=== PATIENT | male | born 1975 | race African-American/Black ===

== ENCOUNTER 2017-08-21 09:47 | Inpatient (IN) | payer BC ==
[2017-08-21 11:11] LABS: BILIRUBIN,URINE NEGATIVE (NEG); CLARITY,URINE CLEAR; COLOR,URINE YELLOW; GLUCOSE,URINE NEGATIVE (NEG); NITRITE,URINE NEGATIVE (NEG); PH,URINE 5.5; PROTEIN,URINE NEGATIVE (NEG-TRACE); UROBILINOGEN,URINE 0.2 mg/dL (0.2 mg/dL)
[2017-08-21 11:16] LABS: SQUAMOUS EPITHELIAL CELL,UR OCC /LPF
[2017-08-21] MEDS: ONDANSETRON PF 4 MG/2 ML VIAL. IV (11:16)
[2017-08-21] MEDS: KETOROLAC 30 MG/ML INJ. IV (11:16)
[2017-08-21 11:17] LABS: LIPASE 161 U/L (73-393)
[2017-08-21 11:17] LABS: ADD MAN DIFF? NO; ANION GAP 8 (6-14); BACTERIA,URINE FEW /HPF (0-FEW); BLOOD UREA NITROGEN 24 mg/dL (8-26); BUN/CREATININE RATIO 20 (6-20); CALCIUM 9.7 mg/dL (8.5-10.1); CARBON DIOXIDE 27 mmol/L (21-32); CHLORIDE 103 mmol/L (98-107); CREATININE 1.2 mg/dL (0.7-1.3); GFR 67.4; GLUCOSE 123 mg/dL (70-99); POTASSIUM 4.4 mmol/L (3.5-5.1); RBC,URINE 0 /HPF (0-2); SODIUM 138 mmol/L (136-145)
[2017-08-21] MEDS: IV NORMAL SALINE 1000ML BAG 1,000 ML IV (11:17)
[2017-08-21 11:18] LABS: AMPHETAMINE/METHAMPHETAMINE NEG (NEG); BARBITURATES NEG (NEG); BENZODIAZEPINES NEG (NEG); CANNABINOIDS POS (NEG); COCAINE POS (NEG); ETHANOL, URINE NEG (NEG); METHADONE NEG (NEG); OPIATES NEG (NEG); PHENCYCLIDINE NEG (NEG)
[2017-08-21 11:20] LABS: BASO % 0 % (0-3); EOS % 0 % (0-3); HEMOGLOBIN 13.1 g/dL (13.0-17.5); LYMPH # 0.8 x10^3/uL (1.0-4.8); LYMPH % 12 % (24-48); MEAN CORPUSCULAR HEMOGLOBIN 31 pg (25-35); MEAN CORPUSCULAR HGB CONC 34 g/dL (31-37); MEAN CORPUSCULAR VOLUME 93 fL (79-100); MONO # 0.3 x10^3/uL (0.0-1.1); MONO % 4 % (0-9); NEUT % 83 % (31-73); PLATELET COUNT 244 x10^3/uL (140-400); RED BLOOD COUNT 4.21 x10^6/uL (4.30-5.70); RED CELL DISTRIBUTION WIDTH 13.9 % (11.5-14.5); WHITE BLOOD COUNT 7.2 x10^3/uL (4.0-11.0)
[2017-08-21 11:26] LABS: ALBUMIN/GLOBULIN RATIO 1.1 (1.0-1.7); ALK PHOS 105 U/L (46-116); ALT (SGPT) 53 U/L (16-63); AST (SGOT) 29 U/L (15-37); TOTAL BILIRUBIN 0.5 mg/dL (0.2-1.0); TOTAL PROTEIN 7.8 g/dL (6.4-8.2)
[2017-08-21] MEDS ORDERED: fentaNYL PF VIAL 100 MCG/2 ML VIAL IV (12:00)
[2017-08-21] MEDS ORDERED: IOHEXOL 300 MG/ML 100ML VIAL. (12:25)
[2017-08-21] MEDS ORDERED: CONTRAST GIVEN MC (12:30)
[2017-08-21 12:34] LABS: TROPONINI < 0.017 ng/mL (0.000-0.055)
[2017-08-21] MEDS: IOHEXOL 300 MG/ML 100ML VIAL. IV (13:25)
[2017-08-21] MEDS: hydrALAZINE 20 MG/ML VIAL. IVP ×2 (14:51→18:12)
[2017-08-21] MEDS ORDERED: ACETAMINOPHEN 500 MG TABLET PO (15:30)
[2017-08-21] MEDS ORDERED: diphenhydrAMINE HCL 25 MG CAPSULE PO (15:30)
[2017-08-21] MEDS ORDERED: ONDANSETRON PF 4 MG/2 ML VIAL. IV ×2 (15:30→17:00)
[2017-08-21] MEDS ORDERED: NICOTINE 21MG PATCH. TD (15:45)
[2017-08-21] MEDS: hydroCHLOROthiazide 12.5 MG CAPSULE PO (16:10)
[2017-08-21] MEDS: LISINOPRIL 5 MG TABLET. PO (16:10)
[2017-08-21] MEDS: amLODIPine BESYLATE 5 MG TABLET PO (17:21)
[2017-08-21 17:49] LABS: CHOLESTEROL 172 mg/dL (0-200); HDLC 58 mg/dL (40-60); LDLC 97 mg/dL (0-100); NON-HDL CHOLESTEROL 114 mg/dL (0-129); TRIGLYCERIDES 84 mg/dL (0-150); VLDLC 17 mg/dL (0-40)
[2017-08-21 17:57] LABS: THYROID STIM HORMONE (TSH) 0.363 uIU/mL (0.358-3.74)
[2017-08-21] MEDS: IBUPROFEN 600 MG TABLET. PO (19:58)
[2017-08-21 20:30] LABS: TROPONINI < 0.017 ng/mL (0.000-0.055)
[2017-08-21 23:34] LABS: TROPONINI < 0.017 ng/mL (0.000-0.055)
[2017-08-22] MEDS: IBUPROFEN 600 MG TABLET. PO ×2 (04:59→12:49)
[2017-08-22 05:16] LABS: ADD MAN DIFF? NO
[2017-08-22 05:38] LABS: ANION GAP 10 (6-14); BASO % 1 % (0-3); BLOOD UREA NITROGEN 12 mg/dL (8-26); CALCIUM 9.2 mg/dL (8.5-10.1); CARBON DIOXIDE 25 mmol/L (21-32); CHLORIDE 102 mmol/L (98-107); CREATININE 0.9 mg/dL (0.7-1.3); EOS # 0.1 x10^3/uL (0.0-0.7); EOS % 2 % (0-3); GFR 113.7; GLUCOSE 104 mg/dL (70-99); HEMATOCRIT 44.5 % (39.0-53.0); HEMOGLOBIN 15.2 g/dL (13.0-17.5); LYMPH # 1.9 x10^3/uL (1.0-4.8); LYMPH % 30 % (24-48); MEAN CORPUSCULAR HEMOGLOBIN 31 pg (25-35); MEAN CORPUSCULAR HGB CONC 34 g/dL (31-37); MEAN CORPUSCULAR VOLUME 92 fL (79-100); MONO # 0.6 x10^3/uL (0.0-1.1); MONO % 9 % (0-9); NEUT # 3.7 x10^3uL (1.8-7.7); NEUT % 58 % (31-73); PLATELET COUNT 295 x10^3/uL (140-400); POTASSIUM 3.8 mmol/L (3.5-5.1); RED BLOOD COUNT 4.85 x10^6/uL (4.30-5.70); RED CELL DISTRIBUTION WIDTH 13.8 % (11.5-14.5); SODIUM 137 mmol/L (136-145); WHITE BLOOD COUNT 6.4 x10^3/uL (4.0-11.0)
[2017-08-22] MEDS: LISINOPRIL 5 MG TABLET. PO (08:30)
[2017-08-22] MEDS: ACETAMINOPHEN 325 MG TABLET. PO (08:30)
[2017-08-22] MEDS: hydroCHLOROthiazide 25 MG TABLET PO (08:30)
== END 2017-08-22 13:45 | disposition home or self-care (01) | DRG 305 ==
LOC: ER 09:47 → 2 SOUTH 14:41
DX: I16.0 Hypertensive urgency (principal); F14.90 Cocaine use, unspecified, uncomplicated; F17.210 Nicotine dependence, cigarettes, uncomplicated; I10 Essential (primary) hypertension; R51 Headache; Z82.49 Family history of ischemic heart disease and other diseases of the circulatory system
CPT/HCPCS: 36415; 74022; 74177; 80048; 80053; 80061; 80307; 81001; 83690; 84443; 84484; 85025; 93005; 93306; 96374; 96375; 99285; 99285-25; J0360; J1885; J2405; J7030; Q9967

== ENCOUNTER 2017-08-23 12:49 | Inpatient (IN) | payer BC ==
[2017-08-23] MEDS ORDERED: MORPHINE SULFATE 4 MG/ML DISP.SYRIN. IV/SQ (13:15)
[2017-08-23] MEDS ORDERED: NITROGLYCERIN SUBLINGUAL 0.4 MG BOTTLE OF 25. SL (13:15)
[2017-08-23] MEDS ORDERED: 0.9 % SODIUM CHLORIDE 10 ML DISP.SYRIN. IV (13:15)
[2017-08-23 13:17] LABS: ADD MAN DIFF? NO
[2017-08-23 13:20] LABS: BASO # 0.1 x10^3/uL (0.0-0.2); BASO % 1 % (0-3); EOS # 0.2 x10^3/uL (0.0-0.7); EOS % 2 % (0-3); HEMATOCRIT 46.8 % (39.0-53.0); HEMOGLOBIN 16.2 g/dL (13.0-17.5); LYMPH # 1.6 x10^3/uL (1.0-4.8); LYMPH % 18 % (24-48); MEAN CORPUSCULAR HEMOGLOBIN 32 pg (25-35); MEAN CORPUSCULAR HGB CONC 35 g/dL (31-37); MEAN CORPUSCULAR VOLUME 92 fL (79-100); MONO # 0.8 x10^3/uL (0.0-1.1); MONO % 9 % (0-9); NEUT # 6.1 x10^3uL (1.8-7.7); NEUT % 70 % (31-73); PLATELET COUNT 294 x10^3/uL (140-400); RED CELL DISTRIBUTION WIDTH 13.8 % (11.5-14.5); WHITE BLOOD COUNT 8.7 x10^3/uL (4.0-11.0)
[2017-08-23 13:38] LABS: ANION GAP 14 (6-14); BLOOD UREA NITROGEN 35 mg/dL (8-26); CALCIUM 10.1 mg/dL (8.5-10.1); CARBON DIOXIDE 23 mmol/L (21-32); CHLORIDE 104 mmol/L (98-107); CREATININE 2.8 mg/dL (0.7-1.3); GFR 30.7; GLUCOSE 119 mg/dL (70-99); POTASSIUM 4.3 mmol/L (3.5-5.1); SODIUM 141 mmol/L (136-145)
[2017-08-23 13:45] LABS: INR 1.1 (0.8-1.1); PROTHROMBIN TIME PATIENT 13.3 SEC (11.7-14.0)
[2017-08-23] MEDS ORDERED: ASPIRIN 325 MG TABLET PO (13:45)
[2017-08-23 13:47] LABS: TROPONINI < 0.017 ng/mL (0.000-0.055)
[2017-08-23] MEDS: IV NORMAL SALINE 1000ML BAG 1,000 ML IV ×2 (13:49→20:45)
[2017-08-23 13:50] LABS: ALBUMIN 4.2 g/dL (3.4-5.0); ALK PHOS 105 U/L (46-116); ALT (SGPT) 54 U/L (16-63); AST (SGOT) 26 U/L (15-37); DIRECT BILIRUBIN 0.1 mg/dL (0.0-0.2); LIPASE 298 U/L (73-393); MAGNESIUM 1.9 mg/dL (1.8-2.4); TOTAL BILIRUBIN 0.5 mg/dL (0.2-1.0); TOTAL PROTEIN 8.1 g/dL (6.4-8.2)
[2017-08-23 13:50] LABS: THYROID STIM HORMONE (TSH) 1.716 uIU/mL (0.358-3.74)
[2017-08-23 13:51] LABS: CKMB MASS 1.9 ng/mL (0.0-3.6); CREATINE KINASE 193 U/L (39-308); D-DIMER 0.38 ug/mlFEU (0.00-0.50)
[2017-08-23 13:51] LABS: NT-PRO BNP 36 pg/mL (0-124)
[2017-08-24] MEDS: IV NORMAL SALINE 1000ML BAG 1,000 ML IV ×3 (05:28→21:43)
[2017-08-24] MEDS: amLODIPine BESYLATE 10 MG TABLET PO (11:03)
[2017-08-24] MEDS ORDERED: HYDROcodone/APAP 5/325MG 1 TAB TABLET PO (12:00)
[2017-08-24 12:44] LABS: ALBUMIN 3.7 g/dL (3.4-5.0); ANION GAP 9 (6-14); BLOOD UREA NITROGEN 27 mg/dL (8-26); CALCIUM 8.8 mg/dL (8.5-10.1); CARBON DIOXIDE 25 mmol/L (21-32); CHLORIDE 105 mmol/L (98-107); CREATININE 1.2 mg/dL (0.7-1.3); GFR 81.6; GLUCOSE 111 mg/dL (70-99); PHOSPHORUS 3.2 mg/dL (2.6-4.7); POTASSIUM 4.5 mmol/L (3.5-5.1); SODIUM 139 mmol/L (136-145)
[2017-08-24 14:05] LABS: BILIRUBIN,URINE NEGATIVE (NEG); GLUCOSE,URINE NEGATIVE (NEG); NITRITE,URINE NEGATIVE (NEG); PROTEIN,URINE NEGATIVE (NEG-TRACE); UROBILINOGEN,URINE 0.2 mg/dL (0.2 mg/dL)
[2017-08-24 14:13] LABS: CLARITY,URINE CLEAR; COLOR,URINE STRAW
[2017-08-24 14:15] LABS: BACTERIA,URINE 0 /HPF (0-FEW); RBC,URINE 0 /HPF (0-2); SQUAMOUS EPITHELIAL CELL,UR FEW /LPF; WBC,URINE 0 /HPF (0-4)
[2017-08-24] MEDS: ASPIRIN ENTERIC COATED 325 MG TABLET.DR. PO (15:51)
[2017-08-25] MEDS: IV NORMAL SALINE 1000ML BAG 1,000 ML IV ×2 (02:11→12:55)
[2017-08-25] MEDS: ASPIRIN ENTERIC COATED 81 MG TABLET.DR. PO (10:26)
[2017-08-25] MEDS: amLODIPine BESYLATE 10 MG TABLET PO (10:26)
[2017-08-26] MEDS: IV NORMAL SALINE 1000ML BAG 1,000 ML IV ×2 (00:13→08:29)
[2017-08-26 05:42] LABS: ANION GAP 7 (6-14); BLOOD UREA NITROGEN 17 mg/dL (8-26); CALCIUM 8.8 mg/dL (8.5-10.1); CARBON DIOXIDE 29 mmol/L (21-32); CHLORIDE 106 mmol/L (98-107); GFR 100.7; GLUCOSE 89 mg/dL (70-99); POTASSIUM 4.2 mmol/L (3.5-5.1); SODIUM 142 mmol/L (136-145)
[2017-08-26] MEDS: ASPIRIN ENTERIC COATED 81 MG TABLET.DR. PO (08:23)
[2017-08-26] MEDS: amLODIPine BESYLATE 10 MG TABLET PO (08:23)
[2017-08-26] MEDS: cloNIDine HCL 0.1 MG TABLET PO (11:02)
[2017-08-26] MEDS: LISINOPRIL 20 MG TABLET PO (12:00)
== END 2017-08-26 12:52 | disposition home or self-care (01) | DRG 640 ==
LOC: ER 12:49 → 5 NORTH 15:14
DX: E86.0 Dehydration (principal); N17.0 Acute kidney failure with tubular necrosis; I10 Essential (primary) hypertension; R07.89 Other chest pain; F17.210 Nicotine dependence, cigarettes, uncomplicated; F14.10 Cocaine abuse, uncomplicated; F19.10 Other psychoactive substance abuse, uncomplicated; Z82.49 Family history of ischemic heart disease and other diseases of the circulatory system
CPT/HCPCS: 36415; 71045; 76770; 78452; 80048; 80069; 80076; 81001; 82553; 83690; 83735; 83880; 84443; 84484; 85025; 85379; 85610; 93005; 93017; 96360; 96361; 96374; 96376; 99285; 99285-25; A9500; J7030

== ENCOUNTER 2018-01-19 23:44 | Emergency (ER) | payer BC ==
[~2018-01-19] VITALS: Ht 188 cm; Wt 104.3 kg
[~2018-01-19 23:44] MED LIST: AMLO10TA6 PO; LISI1TAB3 PO
[2018-01-20] LABS: BASO # 0.1 x10^3/uL (0.0-0.2); BASO % 1 % (0-3); EOS # 0.2 x10^3/uL (0.0-0.7); EOS % 4 % (0-3); HEMATOCRIT 42.3 % (39.0-53.0); HEMOGLOBIN 14.9 g/dL (13.0-17.5); LYMPH # 2.2 x10^3/uL (1.0-4.8); LYMPH % 36 % (24-48); MEAN CORPUSCULAR HEMOGLOBIN 32 pg (25-35); MEAN CORPUSCULAR HGB CONC 35 g/dL (31-37); MEAN CORPUSCULAR VOLUME 90 fL (79-100); MONO # 0.6 x10^3/uL (0.0-1.1); MONO % 10 % (0-9); NEUT # 2.9 x10^3uL (1.8-7.7); NEUT % 49 % (31-73); PLATELET COUNT 348 x10^3/uL (140-400); RED CELL DISTRIBUTION WIDTH 13.6 % (11.5-14.5)
[2018-01-20 00:08] LABS: CALCIUM 10.3 mg/dL (8.5-10.1); CREATININE 1.9 mg/dL (0.7-1.3); GFR 47.7; POTASSIUM 4.1 mmol/L (3.5-5.1)
[2018-01-20 00:14] LABS: ALBUMIN 4.7 g/dL (3.4-5.0); ALBUMIN/GLOBULIN RATIO 1.3 (1.0-1.7); TOTAL BILIRUBIN 0.6 mg/dL (0.2-1.0); TOTAL PROTEIN 8.2 g/dL (6.4-8.2)
[2018-01-20] MEDS ORDERED: IV NORMAL SALINE 1000ML BAG 1,000 ML IV ONE ×2 (00:30)
--- NOTE | 2018-01-20 00:51 | PHYS DOC ---
Past Medical History Past Medical History: Hypertension Past Surgical History: Tonsillectomy Alcohol Use: Occasionally Drug Use: Cocaine, Marijuana Adult General Chief Complaint Chief Complaint: Palpitations HPI HPI Patient is a 42 year old female presents with palpitations brought in by ambulance he did cocaine prior to the onset. Just feels like her heart is racing no chest pain otherwise symptoms are moderate worsening with time. Review of Systems Review of Systems Constitutional: Denies fever or chills [] Eyes: Denies change in visual acuity, redness, or eye pain [] HENT: Denies nasal congestion or sore throat [] : Denies dysuria or hematuria [] Musculoskeletal: Denies back pain or joint pain [] Integument: Denies rash or skin lesions [] Neurologic: Denies headache, focal weakness or sensory changes [] Endocrine: Denies polyuria or polydipsia [] Denies suicidal ideation All other systems were reviewed and found to be within normal limits, except as documented in this note. Current Medications Current Medications Current Medications Medications (Trade) Dose Ordered Sig/Tabitha Start Time Stop Time Status Last Admin Dose Admin Lorazepam (Ativan) 2 mg 1X ONCE 01/20/18 00:15 01/20/18 00:16 DC 01/20/18 00:02 2 MG Sodium Chloride 1,000 ml @ 1,000 mls/hr 1X ONCE 01/20/18 00:30 01/20/18 01:29 01/20/18 00:19 1,000 MLS/HR Allergies Allergies Allergies Coded Allergies Type Severity Reaction Last Updated Verified lisinopril Allergy Intermediate 01/20/18 Yes Physical Exam Physical Exam Constitutional: Well developed, anxious HENT: Normocephalic, atraumatic, bilateral external ears normal, oropharynx moist, no oral exudates, nose normal. [] Eyes: PERRLA, EOMI, conjunctiva normal, no discharge. [] Neck: Normal range of motion, no tenderness, supple, no stridor. [] Cardiovascular:Heart rate tachycardic , regular rhythm, no murmur [] Lungs & Thorax: Bilateral breath sounds clear to auscultation [] Abdomen: Bowel sounds normal, soft, no tenderness, no masses, no pulsatile masses. [] Skin: Warm, dry, no erythema, no rash. [] Back: No tenderness, no CVA tenderness. [] Extremities: No tenderness, no cyanosis, no clubbing, ROM intact, no edema. [] Neurologic: Alert and oriented X 3, normal motor function, normal sensory function, no focal deficits noted. [] Psychologic: Affect normal, judgement normal, mood anxious Current Patient Data Vital Signs Vital Signs Date Time Temp Pulse Resp B/P (MAP) Pulse Ox O2 Delivery O2 Flow Rate FiO2 01/19/18 23:45 98.2 120 22 159/97 (117) 99 Room Air 98.2 Lab Values Laboratory Tests Test 01/19/18 23:47 White Blood Count 6.0 x10^3/uL (4.0-11.0) Red Blood Count 4.70 x10^6/uL (4.30-5.70) Hemoglobin 14.9 g/dL (13.0-17.5) Hematocrit 42.3 % (39.0-53.0) Mean Corpuscular Volume 90 fL (79-100) Mean Corpuscular Hemoglobin 32 pg (25-35) Mean Corpuscular Hemoglobin Concent 35 g/dL (31-37) Red Cell Distribution Width 13.6 % (11.5-14.5) Platelet Count 348 x10^3/uL (140-400) Neutrophils (%) (Auto) 49 % (31-73) Lymphocytes (%) (Auto) 36 % (24-48) Monocytes (%) (Auto) 10 % (0-9) H Eosinophils (%) (Auto) 4 % (0-3) H Basophils (%) (Auto) 1 % (0-3) Neutrophils # (Auto) 2.9 x10^3uL (1.8-7.7) Lymphocytes # (Auto) 2.2 x10^3/uL (1.0-4.8) Monocytes # (Auto) 0.6 x10^3/uL (0.0-1.1) Eosinophils # (Auto) 0.2 x10^3/uL (0.0-0.7) Basophils # (Auto) 0.1 x10^3/uL (0.0-0.2) Sodium Level 135 mmol/L (136-145) L Potassium Level 4.1 mmol/L (3.5-5.1) Chloride Level 98 mmol/L (98-107) Carbon Dioxide Level 22 mmol/L (21-32) Anion Gap 15 (6-14) H Blood Urea Nitrogen 20 mg/dL (8-26) Creatinine 1.9 mg/dL (0.7-1.3) H Estimated GFR (Cockcroft-Gault) 47.7 BUN/Creatinine Ratio 11 (6-20) Glucose Level 114 mg/dL (70-99) H Calcium Level 10.3 mg/dL (8.5-10.1) H Total Bilirubin 0.6 mg/dL (0.2-1.0) Aspartate Amino Transferase (AST) 30 U/L (15-37) Alanine Aminotransferase (ALT) 45 U/L (16-63) Alkaline Phosphatase 121 U/L (46-116) H Troponin I Quantitative < 0.017 ng/mL (0.000-0.055) Total Protein 8.2 g/dL (6.4-8.2) Albumin 4.7 g/dL (3.4-5.0) Albumin/Globulin Ratio 1.3 (1.0-1.7) Laboratory Tests 01/19/18 23:47 Laboratory Tests 01/19/18 23:47 EKG EKG []EKG shows a sinus tachycardia rate of 123 there are likely rate related ST changes inferiorly. Radiology/Procedures Radiology/Procedures [] Course & Med Decision Making Course & Med Decision Making Pertinent Labs and Imaging studies reviewed. (See chart for details) []42-year-old male presenting with palpitations in the setting of cocaine use. Patient is given Ativan in the emergency room as well as IV fluids with significant improvement. There were some probably rate related changes on EKG but troponin negative. Counseled on drug use cessation he was given resources for detox. Knows the bump and the creatinine as well as given 2 L of IV fluids for this Dragon Disclaimer Dragon Disclaimer This electronic medical record was generated, in whole or in part, using a voice recognition dictation system. Departure Departure Impression: Primary Impression: Drug abuse Disposition: 01 HOME, SELF-CARE Condition: STABLE Patient Instructions: Drug Abuse, FAOLIVER Choi MD Jan 20, 2018 00:51
[2018-01-20 01:39] VITALS: BP 142/93
--- NOTE | 2018-01-20 07:52 | EKG ---
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
== END 2018-01-20 01:55 | disposition home or self-care (01) ==
LOC: ER 23:44
DX: F19.10 Other psychoactive substance abuse, uncomplicated (principal); F14.10 Cocaine abuse, uncomplicated; R00.0 Tachycardia, unspecified; I10 Essential (primary) hypertension; Z90.89 Acquired absence of other organs; Z88.8 Allergy status to other drugs, medicaments and biological substances
CPT/HCPCS: 36415; 80053; 84484; 85025; 93005; 96374; 99285; J2060; J7030; 96361

== ENCOUNTER 2018-03-23 21:03 | Inpatient (IN) | payer BC ==
[~2018-03-23] VITALS: Ht 182.9 cm; Wt 102.1 kg
[2018-03-23] MEDS ORDERED: AMIODARONE 900 MG in IV DEXTROSE 5% 500 ML IV PRN (21:15)
[2018-03-23] MEDS ORDERED: ASPIRIN CHEWABLE 81 MG TABLET. PO ONE (21:30)
[2018-03-23] MEDS ORDERED: fentaNYL PF VIAL 100 MCG/2 ML VIAL IV ONE (21:30)
[2018-03-23] MEDS ORDERED: HEPARIN for IV BOLUS 10,000 UNIT/10 ML VIAL. ONE (21:40)
[2018-03-23] MEDS ORDERED: NITROGLYCERIN SUBLINGUAL 0.4 MG BOTTLE OF 25. SL ONE (21:45)
[2018-03-23] MEDS ORDERED: HEPARIN for IV BOLUS 10,000 UNIT/10 ML VIAL. IV ONE (21:45)
[2018-03-23 21:46] LABS: BASO % 0 % (0-3); EOS # 0.1 x10^3/uL (0.0-0.7); EOS % 1 % (0-3); HEMATOCRIT 40.8 % (39.0-53.0); HEMOGLOBIN 14.4 g/dL (13.0-17.5); LYMPH # 1.1 x10^3/uL (1.0-4.8); LYMPH % 10 % (24-48); MEAN CORPUSCULAR HEMOGLOBIN 32 pg (25-35); MEAN CORPUSCULAR HGB CONC 35 g/dL (31-37); MEAN CORPUSCULAR VOLUME 91 fL (79-100); MONO # 0.5 x10^3/uL (0.0-1.1); MONO % 5 % (0-9); NEUT # 9.2 x10^3uL (1.8-7.7); NEUT % 84 % (31-73); PLATELET COUNT 327 x10^3/uL (140-400); RED BLOOD COUNT 4.51 x10^6/uL (4.30-5.70); RED CELL DISTRIBUTION WIDTH 13.6 % (11.5-14.5); WHITE BLOOD COUNT 10.9 x10^3/uL (4.0-11.0)
[2018-03-23 21:56] LABS: CALCIUM 9.6 mg/dL (8.5-10.1); CREATININE 1.3 mg/dL (0.7-1.3); POTASSIUM 4.3 mmol/L (3.5-5.1)
[2018-03-23] MEDS ORDERED: HEPARIN for IV BOLUS 10,000 UNIT/10 ML VIAL. IV PRN (22:00)
[2018-03-23] MEDS ORDERED: HEPARIN 25,000UTS/500ML PREMIX 500 ML IV PRN (22:00)
[2018-03-23] MEDS ORDERED: NITROGLYCERIN PREMIX 250 ML IV ONE (22:00)
[2018-03-23 22:01] LABS: ALBUMIN 4.4 g/dL (3.4-5.0); ALBUMIN/GLOBULIN RATIO 1.2 (1.0-1.7); TOTAL BILIRUBIN 0.2 mg/dL (0.2-1.0); TOTAL PROTEIN 8.1 g/dL (6.4-8.2)
[2018-03-23 22:03] LABS: PROTHROMBIN TIME PATIENT 11.7 SEC (11.7-14.0)
[2018-03-23] MEDS ORDERED: MORPHINE SULFATE 10 MG/ML VIAL. ONE (22:13)
[2018-03-23] MEDS ORDERED: MORPHINE SULFATE 4 MG/ML VIAL. IV ONE (22:15)
[2018-03-23 23:00] VITALS: BP 115/64
[2018-03-23 23:15] VITALS: BP 120/66
[2018-03-23 23:30] VITALS: BP 112/66
--- NOTE | 2018-03-23 23:35 | PHYS DOC ---
Past Medical History Past Medical History: Hypertension Past Surgical History: Tonsillectomy Alcohol Use: Occasionally Drug Use: Cocaine, Marijuana Adult General Chief Complaint Chief Complaint: CHEST PAIN-CARDIAC NATURE HPI HPI Patient is a 42 year old presenting with cc of chest pain. Patient's about 3 hours ago he began having dull left upper quadrant abdominal pain and then over the last hour or so he says he is now having a lot of chest pain and feels like pressure across the center of his chest more left sided feels some mild shortness of breath he says he feels sleepy and tired. Of note history obtained later was at the patient did use cocaine yesterday No fever noted. Symptoms are moderate to severe they're worsening with time no relief with medications given in the emergency room such as fentanyl. He was still having pain. Review of Systems Review of Systems Constitutional: Denies fever or chills [] Eyes: Denies change in visual acuity, redness, or eye pain [] HENT: Denies nasal congestion or sore throat [] Respiratory: Denies cough Cardiovascular: No additional information not addressed in HPI [] GI: Nausea noted Integument: Denies rash or skin lesions [] All other systems were reviewed and found to be within normal limits, except as documented in this note. Current Medications Current Medications Current Medications Medications (Trade) Dose Ordered Sig/Tabitha Start Time Stop Time Status Last Admin Dose Admin Amiodarone HCl 900 mg/Dextrose 518 ml @ 0 mls/hr CONT PRN 03/23/18 21:15 03/23/18 21:17 DC Aspirin (Children'S Aspirin) 324 mg 1X ONCE 03/23/18 21:30 03/23/18 21:34 DC 03/23/18 21:32 324 MG Fentanyl Citrate (Fentanyl 2ml Vial) 50 mcg 1X ONCE 03/23/18 21:30 03/23/18 21:34 DC 03/23/18 21:32 50 MCG Heparin Sodium (Porcine) (Heparin Sodium) 2,600 unit PRN Q6HRS PRN 03/23/18 22:00 Heparin Sodium/ Dextrose 500 ml @ 0 mls/hr CONT PRN 03/23/18 22:00 Nitroglycerin (Nitrostat) 0.4 mg 1X ONCE 03/23/18 21:45 03/23/18 21:46 DC 03/23/18 21:45 0.4 MG Nitroglycerin/ Dextrose 250 ml @ 0 mls/hr 1X ONCE 03/23/18 22:00 03/23/18 22:01 DC 03/23/18 22:04 5 MLS/HR Allergies Allergies Allergies Coded Allergies Type Severity Reaction Last Updated Verified lisinopril Allergy Intermediate 01/20/18 Yes Physical Exam Physical Exam Constitutional: Well developed, well nourished, mild to moderate distress, non- toxic appearance. [] HENT: Normocephalic, atraumatic, bilateral external ears normal, oropharynx moist, no oral exudates, nose normal. [] Eyes: PERRLA, EOMI, conjunctiva normal, no discharge. [] Neck: Normal range of motion, no tenderness, supple, no stridor. [] Cardiovascular:Heart rate regular rhythm, no murmur [] Lungs & Thorax: Bilateral breath sounds clear to auscultation [] Abdomen: Bowel sounds normal, soft, no tenderness, no masses, no pulsatile masses. [] Skin: Warm, dry, no erythema, no rash. [] Back: No tenderness, no CVA tenderness. [] Extremities: No tenderness, no cyanosis, no clubbing, ROM intact, no edema. [] Neurologic: Alert and oriented X 3, normal motor function, normal sensory function, no focal deficits noted. [] Psychologic: Affect normal, judgement normal, mood normal. [] Current Patient Data Vital Signs Vital Signs Date Time Temp Pulse Resp B/P (MAP) Pulse Ox O2 Delivery O2 Flow Rate FiO2 03/23/18 21:45 78 142/86 03/23/18 21:15 97.9 12 100 Room Air 97.9 Lab Values Laboratory Tests Test 03/23/18 21:15 03/23/18 21:26 White Blood Count 10.9 x10^3/uL (4.0-11.0) Red Blood Count 4.51 x10^6/uL (4.30-5.70) Hemoglobin 14.4 g/dL (13.0-17.5) Hematocrit 40.8 % (39.0-53.0) Mean Corpuscular Volume 91 fL (79-100) Mean Corpuscular Hemoglobin 32 pg (25-35) Mean Corpuscular Hemoglobin Concent 35 g/dL (31-37) Red Cell Distribution Width 13.6 % (11.5-14.5) Platelet Count 327 x10^3/uL (140-400) Neutrophils (%) (Auto) 84 % (31-73) H Lymphocytes (%) (Auto) 10 % (24-48) L Monocytes (%) (Auto) 5 % (0-9) Eosinophils (%) (Auto) 1 % (0-3) Basophils (%) (Auto) 0 % (0-3) Neutrophils # (Auto) 9.2 x10^3uL (1.8-7.7) H Lymphocytes # (Auto) 1.1 x10^3/uL (1.0-4.8) Monocytes # (Auto) 0.5 x10^3/uL (0.0-1.1) Eosinophils # (Auto) 0.1 x10^3/uL (0.0-0.7) Basophils # (Auto) 0.0 x10^3/uL (0.0-0.2) Prothrombin Time 11.7 SEC (11.7-14.0) Prothrombin Time INR 0.9 (0.8-1.1) Sodium Level 142 mmol/L (136-145) Potassium Level 4.3 mmol/L (3.5-5.1) Chloride Level 104 mmol/L (98-107) Carbon Dioxide Level 29 mmol/L (21-32) Anion Gap 9 (6-14) Blood Urea Nitrogen 16 mg/dL (8-26) Creatinine 1.3 mg/dL (0.7-1.3) Estimated GFR (Cockcroft-Gault) 74.0 BUN/Creatinine Ratio 12 (6-20) Glucose Level 120 mg/dL (70-99) H Calcium Level 9.6 mg/dL (8.5-10.1) Total Bilirubin 0.2 mg/dL (0.2-1.0) Aspartate Amino Transferase (AST) 26 U/L (15-37) Alanine Aminotransferase (ALT) 69 U/L (16-63) H Alkaline Phosphatase 129 U/L (46-116) H Creatine Kinase 240 U/L (39-308) Creatine Kinase MB (Mass) 2.1 ng/mL (0.0-3.6) Creatine Kinase MB Relative Index 0.9 % (0-4) Troponin I Quantitative < 0.017 ng/mL (0.000-0.055) Total Protein 8.1 g/dL (6.4-8.2) Albumin 4.4 g/dL (3.4-5.0) Albumin/Globulin Ratio 1.2 (1.0-1.7) Lipase 218 U/L (73-393) Ethyl Alcohol Level < 10 mg/dL (0-10) POC Troponin I 0.00 ng/ml (<0.08) Laboratory Tests 03/23/18 21:15 Laboratory Tests 03/23/18 21:15 EKG EKG [] Interpretation Time: EKG shows a normal sinus rhythm done at 2119 interpreted by me at 2120, showed ST elevation in V4 and V5 and [place] criteria for STEMI. We activated the STEMI alert a few minutes later. I did review the EKG with Dr. Mabel Cerda who is driving in now. Radiology/Procedures Radiology/Procedures [] Impressions: cxr neg acute interpreted by me no ptx. elevated right hemidiaphragm noted. Course & Med Decision Making Course & Med Decision Making Pertinent Labs and Imaging studies reviewed. (See chart for details) []This is a 42-year-old male presenting to the emergency room with chest pain and some upper abdominal discomfort EKG showed findings consistent with a STEMI was activated the [employer]. Compared to the EKG in our system the old EKG these ST segment findings are new. later on additional history was obtained from the patient that noted that he used cocaine yesterday and had negative mpi earlier this year. of note/ d/w minh to deliver the additional hx, recommended icu for heparin drip, short duration repeat troponin at [id number] range, and he will evaluate. of note there was another critically ill coding patient going to [employer] simultaneously at the time of this discussion. given the negative mpi earlier this year, and the face taht this patient is HD stable, and we are treating him with nitro, morphine, heparin drip etc,. first troponin was negative with three hours of symptoms , i think this is reasonable. repeat ekg done later at 2215 did show that the st segments were slightly improved from the first one but still elevated. pt admitted to [facility], discussed case with him. Critical care time was 45 minutes exclusive of procedures. Dragon Disclaimer Dragon Disclaimer This electronic medical record was generated, in whole or in part, using a voice recognition dictation system. Departure Departure Impression: Primary Impression: STEMI (ST elevation myocardial infarction) Disposition: 09 ADMITTED INPATIENT Admitting Physician: Other Condition: GUARDED Referrals: UNKNOWN PCP NAME (PCP) OLIVER CESAR MD Mar 23, 2018 23:35
--- NOTE | 2018-03-23 23:36 | PDOC1 ---
History and Physical Date of Admission Date of Admission DATE: 03/23/18 TIME: 23:35 Identification/Chief Complaint Chief Complaint Abdominal Pain Chest pain Source Source: Patient History of Present Illness History of Present Illness 42 yo M w/ PMHx HTN who p/w chest pain and epigastric pain that began 3 hours prior to ED presentation after dinner. Notes his chest pain is a pressure across the center of his chest left sided with some radiation into his left arm with some mild shortness of breath associated. He did use cocaine yesterday, now feels pretty sleepy. No recent sick contacts, no fever or chills EKG showed ST elevation in V4 and V5 and [place] criteria for STEMI. CXR neg for acute pathology, but elevated right hemidiaphragm noted. Had negative mpi earlier this year in August Started with nitro, morphine, heparin drip etc,. first troponin was negative with three hours of symptoms. Repeat ekg done later at 2216 did show that the st segments were slightly improved from the first one but still elevated. He was admitted to ICU for further monitoring. Bedside he is more comfortable after morphine dosing with regard to chest pain, but still endorses pretty severe abdominal pain. Past Medical History Cardiovascular: No pertinent hx, HTN Pulmonary: No pertinent hx GI: No pertinent hx Heme/Onc: No pertinent hx Hepatobiliary: No pertinent hx Psych: No pertinent hx Rheumatologic: No pertinent hx Infectious disease: No pertinent hx Renal/: No pertinent hx Endocrine: No pertinent hx Past Surgical History Past Surgical History: No pertinent history Family History Family History: Hypertension Social History Smoke: No ALCOHOL: other Drugs: Cocaine, Marijuana Current Medications Current Medications Current Medications Amiodarone HCl 900 mg/Dextrose 518 ml @ 0 mls/hr CONT PRN IV SEE I/O RECORD; Start 03/23/18 at 21:15; Stop 03/23/18 at 21:17; Status DC Aspirin (Children'S Aspirin) 324 mg 1X ONCE PO Last administered on 03/23/18at 21:32; Start 03/23/18 at 21:30; Stop 03/23/18 at 21:34; Status DC Fentanyl Citrate (Fentanyl 2ml Vial) 50 mcg 1X ONCE IV Last administered on at 21:32; Start 03/23/18 at 21:30; Stop 03/23/18 at 21:34; Status DC Heparin Sodium (Porcine) (Heparin Sodium) 4,000 unit 1X ONCE IV Last administered on 03/23/18at 21:44; Start 03/23/18 at 21:45; Stop 03/23/18 at 21:46 ; Status DC Heparin Sodium (Porcine) (Heparin Sodium) 10,000 unit STK-MED ONCE .ROUTE ; Start 03/23/18 at 21:40; Stop 03/23/18 at 21:41; Status DC Nitroglycerin (Nitrostat) 0.4 mg 1X ONCE SL Last administered on 03/23/18at 21: 45; Start 03/23/18 at 21:45; Stop 03/23/18 at 21:46; Status DC Nitroglycerin/ Dextrose 250 ml @ 0 mls/hr 1X ONCE IV Last administered on 03/23at 22:04; Start 03/23/18 at 22:00; Stop 03/23/18 at 22:01; Status DC Heparin Sodium/ Dextrose 500 ml @ 0 mls/hr CONT PRN IV SEE I/O RECORD; Start 03/23/18 at 22:00 Heparin Sodium (Porcine) (Heparin Sodium) 2,600 unit PRN Q6HRS PRN IV FOR UFH LEVEL LESS THAN 0.2; Start 03/23/18 at 22:00 Morphine Sulfate (Morphine Sulfate) 4 mg 1X ONCE IV Last administered on at 22:15; Start 03/23/18 at 22:15; Stop 03/23/18 at 22:16; Status DC Morphine Sulfate (Morphine Sulfate) 10 mg STK-MED ONCE .ROUTE ; Start 03/23/18 at 22:13; Stop 03/23/18 at 22:14; Status DC Active Scripts Active Amlodipine Besylate 10 Mg Tablet 10 Mg PO DAILY 30 Days Allergies Allergies: Coded Allergies: lisinopril (Verified Allergy, Intermediate, 01/20/18) ROS General: YES: Fatigue, Malaise; No: Chills, Night Sweats, Appetite, Other PSYCHOLOGICAL ROS: No: Anxiety, Behavioral Disorder, Concentration difficultie , Decreased libido, Depression, Disorientation, Hallucinations, Hostility, Irritablity, Memory difficulties, Mood Swings, Obsessive thoughts, Physical abuse, Sexual abuse, Sleep disturbances, Suicidal ideation, Other Eyes: No Blurry vision, No Decreased vision, No Double vision, No Dry eyes, No Excessive tearing, No Eye Pain, No Itchy Eyes, No Loss of vision, No Photophobia , No Scotomata, No Uses contacts, No Uses glasses, No Other HEENT: No: Heacaches, Visual Changes, Hearing change, Nasal congestion, Nasal discharge, Oral lesions, Sinus pain, Sore Throat, Epistaxis, Sneezing, Snoring, Tinnitus, Vertigo, Vocal changes, Other ALLERGY AND IMMUNOLOGY: No: Hives, Insect Bite Sensitivity, Itchy/Watery Eyes, Nasal Congestion, Post Nasal Drip, Seasonal Allergies, Other Hematological and Lymphatic: No: Bleeding Problems, Blood Clots, Blood Transfusions, Brusing, Night Sweats, Pallor, Swollen Lymph Nodes, Other ENDOCRINE: No: Breast Changes, Galactorrhea, Hair Pattern Changes, Hot Flashes , Malaise/lethargy, Mood Swings, Palpitations, Polydipsia/polyuria, Skin Changes , Temperature Intolerance, Unexpected Weight Changes, Other Respiratory: YES: Shortness of breath; No: Cough, Hemoptysis, Orthopnea, Pleuritic Pain, SOB with excertion, Sputum Changes, Stridor, Tachypnea, Wheezing, Other Cardiovascular: yes Chest Pain; No Palpitations, No Orthopnea, No Paroxysmal Noc. Dyspnea, No Edema, No Lt Headedness, No Other Gastrointestinal: Yes Nausea, Yes Abdominal Pain; No Vomiting, No Diarrhea, No Constipation, No Melena, No Hematochezia, No Other Genitourinary: No Dysuria, No Frequency, No Incontinence, No Hematuria, No Retention, No Discharge, No Urgency, No Pain, No Flank Pain, No Other, No , No , No , No , No , No , No Musculoskeletal: No Gait Disturbance, No Joint Pain, No Joint Stiffness, No Joint Swelling, No Muscle Pain, No Muscular Weakness, No Pain In:, No Swelling In:, No Other Neurological: No Behavorial Changes, No Bowel/Bladder ControlChng, No Confusion , No Dizziness, No Gait Disturbance, No Headaches, No Impaired Coord/balance, No Memory Loss, No Numbness/Tingling, No Seizures, No Speech Problems, No Tremors, No Visual Changes, No Weakness, No Other Skin: No Dry Skin, No Eczema, No Hair Changes, No Lumps, No Mole Changes, No Mottling, No Nail Changes, No Pruritus, No Rash, No Skin Lesion Changes, No Other, No Acne Physical Exam General: Alert, Oriented X3, Cooperative, No acute distress HEENT: Atraumatic, PERRLA, EOMI, Mucous membr. moist/pink Lungs: Clear to auscultation, Normal air movement Heart: S1S2, RRR, no murmurs Abdomen: Normal bowel sounds, Soft, No hepatosplenomegaly, No masses, Other ( Epigastric and RUQ abdominal pain) Extremities: No clubbing, No cyanosis, No edema, Normal pulses, No tenderness/ swelling Skin: No rashes, No breakdown, No significant lesion Neuro: Normal gait, Normal speech, Strength at 5/5 X4 ext, Normal tone, Sensation intact, Cranial nerves 3-12 NL, Reflexes 2+ Psych/Mental Status: Mental status NL, Mood NL Vitals Vitals Vital Signs Date Time Temp Pulse Resp B/P (MAP) Pulse Ox O2 Delivery O2 Flow Rate FiO2 03/23/18 23:34 Room Air 03/23/18 23:30 80 16 112/66 (81) 98 03/23/18 23:00 98.1 98.1 Labs Labs Laboratory Tests Test 03/23/18 21:15 03/23/18 21:26 White Blood Count 10.9 x10^3/uL (4.0-11.0) Red Blood Count 4.51 x10^6/uL (4.30-5.70) Hemoglobin 14.4 g/dL (13.0-17.5) Hematocrit 40.8 % (39.0-53.0) Mean Corpuscular Volume 91 fL (79-100) Mean Corpuscular Hemoglobin 32 pg (25-35) Mean Corpuscular Hemoglobin Concent 35 g/dL (31-37) Red Cell Distribution Width 13.6 % (11.5-14.5) Platelet Count 327 x10^3/uL (140-400) Neutrophils (%) (Auto) 84 % (31-73) Lymphocytes (%) (Auto) 10 % (24-48) Monocytes (%) (Auto) 5 % (0-9) Eosinophils (%) (Auto) 1 % (0-3) Basophils (%) (Auto) 0 % (0-3) Neutrophils # (Auto) 9.2 x10^3uL (1.8-7.7) Lymphocytes # (Auto) 1.1 x10^3/uL (1.0-4.8) Monocytes # (Auto) 0.5 x10^3/uL (0.0-1.1) Eosinophils # (Auto) 0.1 x10^3/uL (0.0-0.7) Basophils # (Auto) 0.0 x10^3/uL (0.0-0.2) Prothrombin Time 11.7 SEC (11.7-14.0) Prothromb Time International Ratio 0.9 (0.8-1.1) Sodium Level 142 mmol/L (136-145) Potassium Level 4.3 mmol/L (3.5-5.1) Chloride Level 104 mmol/L (98-107) Carbon Dioxide Level 29 mmol/L (21-32) Anion Gap 9 (6-14) Blood Urea Nitrogen 16 mg/dL (8-26) Creatinine 1.3 mg/dL (0.7-1.3) Estimated GFR (Cockcroft-Gault) 74.0 BUN/Creatinine Ratio 12 (6-20) Glucose Level 120 mg/dL (70-99) Calcium Level 9.6 mg/dL (8.5-10.1) Total Bilirubin 0.2 mg/dL (0.2-1.0) Aspartate Amino Transf (AST/SGOT) 26 U/L (15-37) Alanine Aminotransferase (ALT/SGPT) 69 U/L (16-63) Alkaline Phosphatase 129 U/L (46-116) Creatine Kinase 240 U/L (39-308) Creatine Kinase MB (Mass) 2.1 ng/mL (0.0-3.6) Creatine Kinase MB Relative Index 0.9 % (0-4) Troponin I Quantitative < 0.017 ng/mL (0.000-0.055) Total Protein 8.1 g/dL (6.4-8.2) Albumin 4.4 g/dL (3.4-5.0) Albumin/Globulin Ratio 1.2 (1.0-1.7) Lipase 218 U/L (73-393) Ethyl Alcohol Level < 10 mg/dL (0-10) Bedside Troponin I 0.00 ng/ml (<0.08) Laboratory Tests Test 03/23/18 21:15 03/23/18 21:26 White Blood Count 10.9 x10^3/uL (4.0-11.0) Red Blood Count 4.51 x10^6/uL (4.30-5.70) Hemoglobin 14.4 g/dL (13.0-17.5) Hematocrit 40.8 % (39.0-53.0) Mean Corpuscular Volume 91 fL (79-100) Mean Corpuscular Hemoglobin 32 pg (25-35) Mean Corpuscular Hemoglobin Concent 35 g/dL (31-37) Red Cell Distribution Width 13.6 % (11.5-14.5) Platelet Count 327 x10^3/uL (140-400) Neutrophils (%) (Auto) 84 % (31-73) Lymphocytes (%) (Auto) 10 % (24-48) Monocytes (%) (Auto) 5 % (0-9) Eosinophils (%) (Auto) 1 % (0-3) Basophils (%) (Auto) 0 % (0-3) Neutrophils # (Auto) 9.2 x10^3uL (1.8-7.7) Lymphocytes # (Auto) 1.1 x10^3/uL (1.0-4.8) Monocytes # (Auto) 0.5 x10^3/uL (0.0-1.1) Eosinophils # (Auto) 0.1 x10^3/uL (0.0-0.7) Basophils # (Auto) 0.0 x10^3/uL (0.0-0.2) Prothrombin Time 11.7 SEC (11.7-14.0) Prothromb Time International Ratio 0.9 (0.8-1.1) Sodium Level 142 mmol/L (136-145) Potassium Level 4.3 mmol/L (3.5-5.1) Chloride Level 104 mmol/L (98-107) Carbon Dioxide Level 29 mmol/L (21-32) Anion Gap 9 (6-14) Blood Urea Nitrogen 16 mg/dL (8-26) Creatinine 1.3 mg/dL (0.7-1.3) Estimated GFR (Cockcroft-Gault) 74.0 BUN/Creatinine Ratio 12 (6-20) Glucose Level 120 mg/dL (70-99) Calcium Level 9.6 mg/dL (8.5-10.1) Total Bilirubin 0.2 mg/dL (0.2-1.0) Aspartate Amino Transf (AST/SGOT) 26 U/L (15-37) Alanine Aminotransferase (ALT/SGPT) 69 U/L (16-63) Alkaline Phosphatase 129 U/L (46-116) Creatine Kinase 240 U/L (39-308) Creatine Kinase MB (Mass) 2.1 ng/mL (0.0-3.6) Creatine Kinase MB Relative Index 0.9 % (0-4) Troponin I Quantitative < 0.017 ng/mL (0.000-0.055) Total Protein 8.1 g/dL (6.4-8.2) Albumin 4.4 g/dL (3.4-5.0) Albumin/Globulin Ratio 1.2 (1.0-1.7) Lipase 218 U/L (73-393) Ethyl Alcohol Level < 10 mg/dL (0-10) Bedside Troponin I 0.00 ng/ml (<0.08) VTE Prophylaxis Ordered VTE Prophylaxis Devices: Yes VTE Pharmacological Prophylaxi: Yes Assessment/Plan Assessment/Plan A/P: STEMI - by [place] criteria on EKG, will trend troponins, which were negative as well as CK, CKMB. Heparin GTT, NTG, ASA, will check lipids, A1c, TSH. Could be cocaine-induced vasospasm, though he is not acutely intoxicated. Cardiology following. His pain is improved with morphine for now Epigastric abdominal pain - preceded his chest pain, could be PUD, gastritis, hepatitis, though his ALT of 69 and ALP of 129 and otherwise normal LFTs don't imply acute hepatitis, will get US and start on IV PPI. May consult GI once his cardiac problems have been resolved HTN - on CCB and ARB, will cont. Will add BB once concern for interaction with cocaine is abated Smoker - counseled on cessation, offered nicotine patch, he declines Marijuana abuse - counseled on cessation Cocaine use - states this was an infrequent event, counseled against use FEN - cardiac diet, NPO after midnight PPX - Heparin FULL CODE ICU for heparin GTT for STEMI, though this picture is unclear, particularly since he had a recent stress test that was negative. He has a very active lifestyle, works for [employer], able to tolerate heavy lifting. ALAN BILLY MD Mar 23, 2018 23:36
[2018-03-23 23:45] VITALS: BP 123/72
[2018-03-24] VITALS (13 sets, daily range): BP systolic 103–145; BP diastolic 67–98
[2018-03-24] MEDS ORDERED: MORPHINE SULFATE 2 MG/ML VIAL. IV PRN (00:45)
[2018-03-24] MEDS ORDERED: LOSA50TA7 PO (01:29)
[2018-03-24] MEDS ORDERED: ASPI-630 PO (01:29)
[2018-03-24] MEDS ORDERED: 0.9 % SODIUM CHLORIDE 10 ML DISP.SYRIN. IV PRN (01:45)
[2018-03-24] MEDS ORDERED: ONDANSETRON PF 4 MG/2 ML VIAL. IV PRN (01:45)
[2018-03-24] MEDS ORDERED: LACTULOSE 20 GM/30 ML SOLUTION. PO PRN (01:45)
[2018-03-24] MEDS ORDERED: ZOLPIDEM 5 MG TABLET. PO PRN (01:45)
--- NOTE | 2018-03-24 02:01 | RAD ---
PORTABLE CHEST 1V Clinical Indication: Chest pain today Comparison: AP chest August 23, 2017. Findings: Similar elevation of right hemidiaphragm. The cardiomediastinal silhouette is normal. Lungs are clear. There is no pneumothorax. No pleural effusion is appreciated. No acute bone abnormality. IMPRESSION: No acute cardiopulmonary process. Electronically signed by: Kobe Fajardo MD (03/24/2018 1:58 AM) [id number]
[2018-03-24] MEDS: MORPHINE SULFATE 4 MG/ML VIAL. IV PRN ×2 (02:02→08:04)
[2018-03-24 05:24] LABS: HEMATOCRIT 37.6 % (39.0-53.0); RED BLOOD COUNT 4.14 x10^6/uL (4.30-5.70); WHITE BLOOD COUNT 10.6 x10^3/uL (4.0-11.0)
--- NOTE | 2018-03-24 05:52 | EKG ---
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
--- NOTE | 2018-03-24 05:53 | EKG ---
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
[2018-03-24 05:57] LABS: CHOLESTEROL/HDL RATIO 3.6
[2018-03-24] MEDS ORDERED: PANTOPRAZOLE IV PUSH 40 MG VIAL. IVP SCH (07:30)
--- NOTE | 2018-03-24 07:51 | PDOC ---
PROGRESS NOTES Chief Complaint Chief Complaint STEMI Epigastric abdominal pain HTN Smoker Marijuana abuse Cocaine use History of Present Illness History of Present Illness 42 yo p/w cc of chest pain and abdominal pain, found with EKG concerning for STEMI, negative troponins. No fever noted, no sick contacts. Feeling better today. Still with some epigastric tenderness. US reviewed with no duct disease, liver possibly enlarged. Discussed with his parents bedside. A/P: STEMI - by [place] criteria on EKG, trended troponins, which were negative as well as CK, CKMB. Will d/c Heparin GTT. Cont NTG, ASA, lipids ok, A1c pending, TSH WNL. Could be cocaine-induced vasospasm, though he was not acutely intoxicated. Cardiology following. His pain is improved with morphine for now Epigastric abdominal pain - preceded his chest pain, could be PUD, gastritis, hepatitis, though his ALT of 69 and ALP of 129 and otherwise normal LFTs don't imply acute hepatitis, will get US and start on IV PPI. May consult GI outpatient resolved HTN - on CCB and ARB, will cont. Will add BB once concern for interaction with cocaine is abated Smoker - counseled on cessation, offered nicotine patch, he declines Marijuana abuse - counseled on cessation Cocaine use - states this was an infrequent event, counseled against use FEN - cardiac diet PPX - Heparin FULL CODE ICU, though this picture is unclear, after troponins trended negative I am convinced that coronary vasospasm, not occlusion changed EKG, particularly since he had a recent stress test that was negative. He has a very active lifestyle, works for [employer], able to tolerate heavy lifting. May be able to leave with GI f/u and PPI. Vitals Vitals Vital Signs Date Time Temp Pulse Resp B/P (MAP) Pulse Ox O2 Delivery O2 Flow Rate FiO2 03/24/18 06:04 82 16 121/87 (98) 99 Room Air 03/24/18 04:00 98.6 98.6 Physical Exam General: Alert, Oriented X3, Cooperative, No acute distress Lungs: Clear Abdomen: Normal bowel sounds, Soft, No hepatosplenomegaly, No masses, Other ( Epigastric and RUQ abdominal pain) Extremities: No clubbing, No cyanosis, No edema, Normal pulses, No tenderness/ swelling Skin: No rashes, No breakdown, No significant lesion Labs LABS Laboratory Tests Test 03/23/18 21:15 03/23/18 21:26 03/23/18 23:50 03/24/18 04:45 White Blood Count 10.9 x10^3/uL (4.0-11.0) 10.6 x10^3/uL (4.0-11.0) Red Blood Count 4.51 x10^6/uL (4.30-5.70) 4.14 x10^6/uL (4.30-5.70) Hemoglobin 14.4 g/dL (13.0-17.5) 13.0 g/dL (13.0-17.5) Hematocrit 40.8 % (39.0-53.0) 37.6 % (39.0-53.0) Mean Corpuscular Volume 91 fL (79-100) 91 fL (79-100) Mean Corpuscular Hemoglobin 32 pg (25-35) 32 pg (25-35) Mean Corpuscular Hemoglobin Concent 35 g/dL (31-37) 35 g/dL (31-37) Red Cell Distribution Width 13.6 % (11.5-14.5) 14.0 % (11.5-14.5) Platelet Count 327 x10^3/uL (140-400) 288 x10^3/uL (140-400) Neutrophils (%) (Auto) 84 % (31-73) Lymphocytes (%) (Auto) 10 % (24-48) Monocytes (%) (Auto) 5 % (0-9) Eosinophils (%) (Auto) 1 % (0-3) Basophils (%) (Auto) 0 % (0-3) Neutrophils # (Auto) 9.2 x10^3uL (1.8-7.7) Lymphocytes # (Auto) 1.1 x10^3/uL (1.0-4.8) Monocytes # (Auto) 0.5 x10^3/uL (0.0-1.1) Eosinophils # (Auto) 0.1 x10^3/uL (0.0-0.7) Basophils # (Auto) 0.0 x10^3/uL (0.0-0.2) Prothrombin Time 11.7 SEC (11.7-14.0) Prothromb Time International Ratio 0.9 (0.8-1.1) Sodium Level 142 mmol/L (136-145) Potassium Level 4.3 mmol/L (3.5-5.1) Chloride Level 104 mmol/L (98-107) Carbon Dioxide Level 29 mmol/L (21-32) Anion Gap 9 (6-14) Blood Urea Nitrogen 16 mg/dL (8-26) Creatinine 1.3 mg/dL (0.7-1.3) Estimated GFR (Cockcroft-Gault) 74.0 BUN/Creatinine Ratio 12 (6-20) Glucose Level 120 mg/dL (70-99) Calcium Level 9.6 mg/dL (8.5-10.1) Total Bilirubin 0.2 mg/dL (0.2-1.0) Aspartate Amino Transf (AST/SGOT) 26 U/L (15-37) Alanine Aminotransferase (ALT/SGPT) 69 U/L (16-63) Alkaline Phosphatase 129 U/L (46-116) Creatine Kinase 240 U/L (39-308) Creatine Kinase MB (Mass) 2.1 ng/mL (0.0-3.6) Creatine Kinase MB Relative Index 0.9 % (0-4) Troponin I Quantitative < 0.017 ng/mL (0.000-0.055) < 0.017 ng/mL (0.000-0.055) < 0.017 ng/mL (0.000-0.055) Total Protein 8.1 g/dL (6.4-8.2) Albumin 4.4 g/dL (3.4-5.0) Albumin/Globulin Ratio 1.2 (1.0-1.7) Lipase 218 U/L (73-393) Ethyl Alcohol Level < 10 mg/dL (0-10) Bedside Troponin I 0.00 ng/ml (<0.08) Heparin Anti-Xa Act, Unfractionated 0.22 IU/mL (0.30-0.70) Triglycerides Level 81 mg/dL (0-150) Cholesterol Level 162 mg/dL (0-200) LDL Cholesterol, Calculated 101 mg/dL (0-100) VLDL Cholesterol, Calculated 16 mg/dL (0-40) Non-HDL Cholesterol Calculated 117 mg/dL (0-129) HDL Cholesterol 45 mg/dL (40-60) Cholesterol/HDL Ratio 3.6 Thyroid Stimulating Hormone (TSH) 0.858 uIU/mL (0.358-3.74) Comment Review of Relevant I have reviewed the following items phillip (where applicable) has been applied. Labs Laboratory Tests Test 03/23/18 21:15 03/23/18 21:26 03/23/18 23:50 03/24/18 04:45 White Blood Count 10.9 x10^3/uL (4.0-11.0) 10.6 x10^3/uL (4.0-11.0) Red Blood Count 4.51 x10^6/uL (4.30-5.70) 4.14 x10^6/uL (4.30-5.70) Hemoglobin 14.4 g/dL (13.0-17.5) 13.0 g/dL (13.0-17.5) Hematocrit 40.8 % (39.0-53.0) 37.6 % (39.0-53.0) Mean Corpuscular Volume 91 fL (79-100) 91 fL (79-100) Mean Corpuscular Hemoglobin 32 pg (25-35) 32 pg (25-35) Mean Corpuscular Hemoglobin Concent 35 g/dL (31-37) 35 g/dL (31-37) Red Cell Distribution Width 13.6 % (11.5-14.5) 14.0 % (11.5-14.5) Platelet Count 327 x10^3/uL (140-400) 288 x10^3/uL (140-400) Neutrophils (%) (Auto) 84 % (31-73) Lymphocytes (%) (Auto) 10 % (24-48) Monocytes (%) (Auto) 5 % (0-9) Eosinophils (%) (Auto) 1 % (0-3) Basophils (%) (Auto) 0 % (0-3) Neutrophils # (Auto) 9.2 x10^3uL (1.8-7.7) Lymphocytes # (Auto) 1.1 x10^3/uL (1.0-4.8) Monocytes # (Auto) 0.5 x10^3/uL (0.0-1.1) Eosinophils # (Auto) 0.1 x10^3/uL (0.0-0.7) Basophils # (Auto) 0.0 x10^3/uL (0.0-0.2) Prothrombin Time 11.7 SEC (11.7-14.0) Prothromb Time International Ratio 0.9 (0.8-1.1) Sodium Level 142 mmol/L (136-145) Potassium Level 4.3 mmol/L (3.5-5.1) Chloride Level 104 mmol/L (98-107) Carbon Dioxide Level 29 mmol/L (21-32) Anion Gap 9 (6-14) Blood Urea Nitrogen 16 mg/dL (8-26) Creatinine 1.3 mg/dL (0.7-1.3) Estimated GFR (Cockcroft-Gault) 74.0 BUN/Creatinine Ratio 12 (6-20) Glucose Level 120 mg/dL (70-99) Calcium Level 9.6 mg/dL (8.5-10.1) Total Bilirubin 0.2 mg/dL (0.2-1.0) Aspartate Amino Transf (AST/SGOT) 26 U/L (15-37) Alanine Aminotransferase (ALT/SGPT) 69 U/L (16-63) Alkaline Phosphatase 129 U/L (46-116) Creatine Kinase 240 U/L (39-308) Creatine Kinase MB (Mass) 2.1 ng/mL (0.0-3.6) Creatine Kinase MB Relative Index 0.9 % (0-4) Troponin I Quantitative < 0.017 ng/mL (0.000-0.055) < 0.017 ng/mL (0.000-0.055) < 0.017 ng/mL (0.000-0.055) Total Protein 8.1 g/dL (6.4-8.2) Albumin 4.4 g/dL (3.4-5.0) Albumin/Globulin Ratio 1.2 (1.0-1.7) Lipase 218 U/L (73-393) Ethyl Alcohol Level < 10 mg/dL (0-10) Bedside Troponin I 0.00 ng/ml (<0.08) Heparin Anti-Xa Act, Unfractionated 0.22 IU/mL (0.30-0.70) Triglycerides Level 81 mg/dL (0-150) Cholesterol Level 162 mg/dL (0-200) LDL Cholesterol, Calculated 101 mg/dL (0-100) VLDL Cholesterol, Calculated 16 mg/dL (0-40) Non-HDL Cholesterol Calculated 117 mg/dL (0-129) HDL Cholesterol 45 mg/dL (40-60) Cholesterol/HDL Ratio 3.6 Thyroid Stimulating Hormone (TSH) 0.858 uIU/mL (0.358-3.74) Laboratory Tests Test 03/23/18 21:15 03/23/18 21:26 03/23/18 23:50 03/24/18 04:45 White Blood Count 10.9 x10^3/uL (4.0-11.0) 10.6 x10^3/uL (4.0-11.0) Red Blood Count 4.51 x10^6/uL (4.30-5.70) 4.14 x10^6/uL (4.30-5.70) Hemoglobin 14.4 g/dL (13.0-17.5) 13.0 g/dL (13.0-17.5) Hematocrit 40.8 % (39.0-53.0) 37.6 % (39.0-53.0) Mean Corpuscular Volume 91 fL (79-100) 91 fL (79-100) Mean Corpuscular Hemoglobin 32 pg (25-35) 32 pg (25-35) Mean Corpuscular Hemoglobin Concent 35 g/dL (31-37) 35 g/dL (31-37) Red Cell Distribution Width 13.6 % (11.5-14.5) 14.0 % (11.5-14.5) Platelet Count 327 x10^3/uL (140-400) 288 x10^3/uL (140-400) Neutrophils (%) (Auto) 84 % (31-73) Lymphocytes (%) (Auto) 10 % (24-48) Monocytes (%) (Auto) 5 % (0-9) Eosinophils (%) (Auto) 1 % (0-3) Basophils (%) (Auto) 0 % (0-3) Neutrophils # (Auto) 9.2 x10^3uL (1.8-7.7) Lymphocytes # (Auto) 1.1 x10^3/uL (1.0-4.8) Monocytes # (Auto) 0.5 x10^3/uL (0.0-1.1) Eosinophils # (Auto) 0.1 x10^3/uL (0.0-0.7) Basophils # (Auto) 0.0 x10^3/uL (0.0-0.2) Prothrombin Time 11.7 SEC (11.7-14.0) Prothromb Time International Ratio 0.9 (0.8-1.1) Sodium Level 142 mmol/L (136-145) Potassium Level 4.3 mmol/L (3.5-5.1) Chloride Level 104 mmol/L (98-107) Carbon Dioxide Level 29 mmol/L (21-32) Anion Gap 9 (6-14) Blood Urea Nitrogen 16 mg/dL (8-26) Creatinine 1.3 mg/dL (0.7-1.3) Estimated GFR (Cockcroft-Gault) 74.0 BUN/Creatinine Ratio 12 (6-20) Glucose Level 120 mg/dL (70-99) Calcium Level 9.6 mg/dL (8.5-10.1) Total Bilirubin 0.2 mg/dL (0.2-1.0) Aspartate Amino Transf (AST/SGOT) 26 U/L (15-37) Alanine Aminotransferase (ALT/SGPT) 69 U/L (16-63) Alkaline Phosphatase 129 U/L (46-116) Creatine Kinase 240 U/L (39-308) Creatine Kinase MB (Mass) 2.1 ng/mL (0.0-3.6) Creatine Kinase MB Relative Index 0.9 % (0-4) Troponin I Quantitative < 0.017 ng/mL (0.000-0.055) < 0.017 ng/mL (0.000-0.055) < 0.017 ng/mL (0.000-0.055) Total Protein 8.1 g/dL (6.4-8.2) Albumin 4.4 g/dL (3.4-5.0) Albumin/Globulin Ratio 1.2 (1.0-1.7) Lipase 218 U/L (73-393) Ethyl Alcohol Level < 10 mg/dL (0-10) Bedside Troponin I 0.00 ng/ml (<0.08) Heparin Anti-Xa Act, Unfractionated 0.22 IU/mL (0.30-0.70) Triglycerides Level 81 mg/dL (0-150) Cholesterol Level 162 mg/dL (0-200) LDL Cholesterol, Calculated 101 mg/dL (0-100) VLDL Cholesterol, Calculated 16 mg/dL (0-40) Non-HDL Cholesterol Calculated 117 mg/dL (0-129) HDL Cholesterol 45 mg/dL (40-60) Cholesterol/HDL Ratio 3.6 Thyroid Stimulating Hormone (TSH) 0.858 uIU/mL (0.358-3.74) Medications Current Medications Amiodarone HCl 900 mg/Dextrose 518 ml @ 0 mls/hr CONT PRN IV SEE I/O RECORD; Start 03/23/18 at 21:15; Stop 03/23/18 at 21:17; Status DC Aspirin (Children'S Aspirin) 324 mg 1X ONCE PO Last administered on 03/23/18at 21:32; Start 03/23/18 at 21:30; Stop 03/23/18 at 21:34; Status DC Fentanyl Citrate (Fentanyl 2ml Vial) 50 mcg 1X ONCE IV Last administered on at 21:32; Start 03/23/18 at 21:30; Stop 03/23/18 at 21:34; Status DC Heparin Sodium (Porcine) (Heparin Sodium) 4,000 unit 1X ONCE IV Last administered on 03/23/18at 21:44; Start 03/23/18 at 21:45; Stop 03/23/18 at 21:46 ; Status DC Heparin Sodium (Porcine) (Heparin Sodium) 10,000 unit STK-MED ONCE .ROUTE ; Start 03/23/18 at 21:40; Stop 03/23/18 at 21:41; Status DC Nitroglycerin (Nitrostat) 0.4 mg 1X ONCE SL Last administered on 03/23/18at 21: 45; Start 03/23/18 at 21:45; Stop 03/23/18 at 21:46; Status DC Nitroglycerin/ Dextrose 250 ml @ 0 mls/hr 1X ONCE IV Last administered on 03/23at 22:04; Start 03/23/18 at 22:00; Stop 03/24/18 at 00:43; Status DC Heparin Sodium/ Dextrose 500 ml @ 0 mls/hr CONT PRN IV SEE I/O RECORD; Start 03/23/18 at 22:00 Heparin Sodium (Porcine) (Heparin Sodium) 2,600 unit PRN Q6HRS PRN IV FOR UFH LEVEL LESS THAN 0.2; Start 03/23/18 at 22:00 Morphine Sulfate (Morphine Sulfate) 4 mg 1X ONCE IV Last administered on at 22:15; Start 03/23/18 at 22:15; Stop 03/23/18 at 22:16; Status DC Morphine Sulfate (Morphine Sulfate) 10 mg STK-MED ONCE .ROUTE ; Start 03/23/18 at 22:13; Stop 03/23/18 at 22:14; Status DC Morphine Sulfate (Morphine Sulfate) 2 mg PRN Q2HR PRN IV PAIN Last administered on 03/24/18at 01:08; Start 03/24/18 at 00:45; Stop 03/24/18 at 01:58 ; Status DC Ondansetron HCl (Zofran) 4 mg PRN Q6HRS PRN IV NAUSEA/VOMITING; Start 03/24/18 at 01:45 Zolpidem Tartrate (Ambien) 5 mg PRN QHS PRN PO INSOMNIA, MAY REPEAT IN 1HR; Start 03/24/18 at 01:45 Sodium Chloride (Normal Saline Flush) 3 ml QSHIFT PRN IV AFTER MEDS AND BLOOD DRAWS; Start 03/24/18 at 01:45 Senna/Docusate Sodium (Senna Plus) 1 tab BID PO ; Start 03/24/18 at 09:00 Lactulose (Lactulose) 20 gm PRN Q12HR PRN PO CONSTIPATION; Start 03/24/18 at 01 :45 Amlodipine Besylate (Norvasc) 10 mg DAILY PO ; Start 03/24/18 at 09:00 Aspirin (Children'S Aspirin) 81 mg DAILY PO ; Start 03/24/18 at 09:00 Losartan Potassium (Cozaar) 50 mg DAILY PO ; Start 03/24/18 at 09:00 Pantoprazole Sodium (PROTONIX VIAL for IV PUSH) 40 mg DAILYAC IVP ; Start at 07:30 Lorazepam (Ativan) 0.5 mg PRN Q4HRS PRN IV ANXIETY / AGITATION Last administered on 03/24/18at 02:06; Start 03/24/18 at 01:45 Morphine Sulfate (Morphine Sulfate) 4 mg PRN Q3HRS PRN IV PAIN Last administered on 03/24/18at 02:02; Start 03/24/18 at 02:00 Active Scripts Active Amlodipine Besylate 10 Mg Tablet 10 Mg PO DAILY 30 Days Reported Aspirin 81 Mg Tab.chew 1 Tab PO DAILY Losartan Potassium 50 Mg Tablet 50 Mg PO DAILY Vitals/I & O Vital Sign - Last 24 Hours 03/23/18 03/23/18 03/23/18 03/23/18 21:15 21:15 21:30 21:45 Temp 97.9 97.9 Pulse 78 80 78 78 Resp 19 12 18 B/P (MAP) 169/99 (122) 169/99 (122) 142/86 Pulse Ox 100 100 99 O2 Delivery Room Air Room Air Room Air 03/23/18 03/23/18 03/23/18 03/23/18 21:45 21:50 21:55 22:00 Pulse 84 82 80 80 Resp 14 18 13 14 B/P (MAP) 142/86 (104) 116/55 (75) 123/79 (94) Pulse Ox 99 99 98 98 O2 Delivery Room Air Room Air Room Air Room Air 03/23/18 03/23/18 03/23/18 03/23/18 22:00 22:05 22:10 22:15 Pulse 80 82 86 86 Resp 14 12 14 14 B/P (MAP) 123/79 (94) 147/85 (105) 140/74 (96) 117/61 (79) Pulse Ox 98 98 99 99 O2 Delivery Room Air Room Air Room Air Room Air 03/23/18 03/23/18 03/23/18 03/23/18 22:15 22:25 22:30 22:35 Pulse 86 82 84 82 Resp 14 10 14 10 B/P (MAP) 117/61 (79) 131/69 (89) 128/64 (85) 131/69 (89) Pulse Ox 99 97 99 99 O2 Delivery Room Air Room Air Room Air Room Air 03/23/18 03/23/18 03/23/18 03/23/18 22:50 23:00 23:15 23:30 Temp 98.1 98.1 Pulse 78 80 80 Resp 16 16 16 B/P (MAP) 115/64 (81) 120/66 (84) 112/66 (81) Pulse Ox 98 98 98 O2 Delivery Room Air Room Air Room Air Room Air 03/23/18 03/23/18 03/23/18 03/24/18 23:34 23:35 23:45 00:00 Temp 98.0 98.0 Pulse 76 80 Resp 17 16 16 B/P (MAP) 123/72 (89) 121/75 (90) Pulse Ox 98 97 O2 Delivery Room Air Room Air Room Air Room Air 03/24/18 03/24/18 03/24/18 03/24/18 01:00 01:01 01:08 01:50 Pulse 80 78 Resp 16 16 18 16 B/P (MAP) 125/76 (92) 129/73 (91) Pulse Ox 97 97 O2 Delivery Room Air Room Air Room Air Room Air 03/24/18 03/24/18 03/24/18 03/24/18 02:00 02:02 03:00 03:30 Pulse 83 65 Resp 16 18 16 B/P (MAP) 124/67 (86) 103/74 (84) Pulse Ox 100 100 O2 Delivery Room Air Room Air Room Air Room Air 03/24/18 03/24/18 03/24/18 04:00 05:00 06:04 Temp 98.6 98.6 Pulse 70 70 82 Resp 16 16 16 B/P (MAP) 120/70 (87) 115/87 (96) 121/87 (98) Pulse Ox 96 98 99 O2 Delivery Room Air Room Air Room Air Intake and Output 03/23/18 03/23/18 03/24/18 15:00 23:00 07:00 Intake Total 0 ml 185 ml Output Total 325 ml Balance 0 ml -140 ml ALAN BILLY MD Mar 24, 2018 07:51
--- NOTE | 2018-03-24 08:06 | RAD ---
Ultrasound the abdomen complete. HISTORY: Transaminitis, epigastric pain Ultrasound was used to evaluate the abdomen. Study is limited by bowel gas. The pancreas is of obscured. Aorta and vena cava were poorly visualized. The liver is incompletely evaluated but is within normal limits in size and appearance. No gallstones were noted. Common duct was normal measuring 5 mm. Right kidney is 11.2 cm in length without hydronephrosis. Spleen is normal in size. Left kidney is 11 cm in length without hydronephrosis. IMPRESSION: 1. Limited exam. 2. No definite liver lesion but incomplete evaluation. 3. No gallstones noted. Electronically signed by: Joss Ni MD (03/24/2018 8:03 AM) [facility]
[2018-03-24] MEDS ORDERED: SENNOSIDES/DOCUSATE 8.6/50MG TABLET. PO SCH (09:00)
[2018-03-24] MEDS ORDERED: LOSARTAN POTASSIUM 50 MG TABLET. PO SCH (09:00)
[2018-03-24] MEDS ORDERED: ASPIRIN CHEWABLE 81 MG TABLET. PO SCH (09:00)
[2018-03-24] MEDS ORDERED: amLODIPine BESYLATE 10 MG TABLET PO SCH (09:00)
--- NOTE | 2018-03-24 10:38 | PDOC2 ---
CONSULT Date of Consult Date of Consult DATE: 03/24/18 TIME: 10:38 Reason for Consult Reason for Consult: Chest pain Referring Physician Referring Physician: Dr. Ambrose Identification/Chief Complaint Chief Complaint Chest pain Source Source: Chart review, Patient History of Present Illness Reason for Visit: 42-year-old male presented complaining of epigastric pain predominantly associated with retrosternal chest pressure that started 3 hours prior to presentation after he just had dinner. He denied any associated shortness of breath, orthopnea/PND, palpitations or syncope. He stated that he used cocaine approximately 8 hours prior to chest pain onset. He was apparently evaluated in the past for similar chest pain in the emergency room in January 2018 and stress test in August 2017. Past Medical History Cardiovascular: No pertinent hx, HTN Pulmonary: No pertinent hx GI: No pertinent hx Heme/Onc: No pertinent hx Hepatobiliary: No pertinent hx Psych: No pertinent hx Rheumatologic: No pertinent hx Infectious disease: No pertinent hx Renal/: No pertinent hx Endocrine: No pertinent hx Past Surgical History Past Surgical History: No pertinent history Family History Family History: Hypertension Social History No ALCOHOL: other Drugs: Cocaine, Marijuana Lives: with Family Current Medications Current Medications Current Medications Amiodarone HCl 900 mg/Dextrose 518 ml @ 0 mls/hr CONT PRN IV SEE I/O RECORD; Start 03/23/18 at 21:15; Stop 03/23/18 at 21:17; Status DC Aspirin (Children'S Aspirin) 324 mg 1X ONCE PO Last administered on 03/23/18at 21:32; Start 03/23/18 at 21:30; Stop 03/23/18 at 21:34; Status DC Fentanyl Citrate (Fentanyl 2ml Vial) 50 mcg 1X ONCE IV Last administered on at 21:32; Start 03/23/18 at 21:30; Stop 03/23/18 at 21:34; Status DC Heparin Sodium (Porcine) (Heparin Sodium) 4,000 unit 1X ONCE IV Last administered on 03/23/18at 21:44; Start 03/23/18 at 21:45; Stop 03/23/18 at 21:46 ; Status DC Heparin Sodium (Porcine) (Heparin Sodium) 10,000 unit STK-MED ONCE .ROUTE ; Start 03/23/18 at 21:40; Stop 03/23/18 at 21:41; Status DC Nitroglycerin (Nitrostat) 0.4 mg 1X ONCE SL Last administered on 03/23/18at 21: 45; Start 03/23/18 at 21:45; Stop 03/23/18 at 21:46; Status DC Nitroglycerin/ Dextrose 250 ml @ 0 mls/hr 1X ONCE IV Last administered on 03/23at 22:04; Start 03/23/18 at 22:00; Stop 03/24/18 at 00:43; Status DC Heparin Sodium/ Dextrose 500 ml @ 0 mls/hr CONT PRN IV SEE I/O RECORD; Start 03/23/18 at 22:00 Heparin Sodium (Porcine) (Heparin Sodium) 2,600 unit PRN Q6HRS PRN IV FOR UFH LEVEL LESS THAN 0.2; Start 03/23/18 at 22:00 Morphine Sulfate (Morphine Sulfate) 4 mg 1X ONCE IV Last administered on at 22:15; Start 03/23/18 at 22:15; Stop 03/23/18 at 22:16; Status DC Morphine Sulfate (Morphine Sulfate) 10 mg STK-MED ONCE .ROUTE ; Start 03/23/18 at 22:13; Stop 03/23/18 at 22:14; Status DC Morphine Sulfate (Morphine Sulfate) 2 mg PRN Q2HR PRN IV PAIN Last administered on 03/24/18at 01:08; Start 03/24/18 at 00:45; Stop 03/24/18 at 01:58 ; Status DC Ondansetron HCl (Zofran) 4 mg PRN Q6HRS PRN IV NAUSEA/VOMITING; Start 03/24/18 at 01:45 Zolpidem Tartrate (Ambien) 5 mg PRN QHS PRN PO INSOMNIA, MAY REPEAT IN 1HR; Start 03/24/18 at 01:45 Sodium Chloride (Normal Saline Flush) 3 ml QSHIFT PRN IV AFTER MEDS AND BLOOD DRAWS; Start 03/24/18 at 01:45 Senna/Docusate Sodium (Senna Plus) 1 tab BID PO ; Start 03/24/18 at 09:00 Lactulose (Lactulose) 20 gm PRN Q12HR PRN PO CONSTIPATION; Start 03/24/18 at 01 :45 Amlodipine Besylate (Norvasc) 10 mg DAILY PO Last administered on 11/4/18at 09: 24; Start 03/24/18 at 09:00 Aspirin (Children'S Aspirin) 81 mg DAILY PO Last administered on 03/24/18 09: 23; Start 03/24/18 at 09:00 Losartan Potassium (Cozaar) 50 mg DAILY PO Last administered on 03/24/18 09:23 ; Start 03/24/18 at 09:00 Pantoprazole Sodium (PROTONIX VIAL for IV PUSH) 40 mg DAILYAC IVP Last administered on 03/24/18 08:03; Start 03/24/18 at 07:30 Lorazepam (Ativan) 0.5 mg PRN Q4HRS PRN IV ANXIETY / AGITATION Last administered on 03/24/18 02:06; Start 03/24/18 at 01:45 Morphine Sulfate (Morphine Sulfate) 4 mg PRN Q3HRS PRN IV PAIN Last administered on 03/24/18 08:04; Start 03/24/18 at 02:00 Active Scripts Active Amlodipine Besylate 10 Mg Tablet 10 Mg PO DAILY 30 Days Reported Aspirin 81 Mg Tab.chew 1 Tab PO DAILY Losartan Potassium 50 Mg Tablet 50 Mg PO DAILY Allergies Allergies: Coded Allergies: lisinopril (Verified Allergy, Intermediate, 01/20/18) ROS PSYCHOLOGICAL ROS: No: Hallucinations Eyes: No Loss of vision HEENT: No: Epistaxis Respiratory: No: Hemoptysis, Shortness of breath Cardiovascular: yes Chest Pain Gastrointestinal: No Vomiting, No Diarrhea Genitourinary: No Hematuria, No Urgency Neurological: No Seizures Skin: No Rash Physical Exam General: Alert, Oriented X3 HEENT: Atraumatic, PERRLA Lungs: Clear to auscultation Heart: Regular rate Abdomen: Soft, No tenderness Extremities: No edema Psych/Mental Status: Mood NL Vitals VITALS Vital Signs Date Time Temp Pulse Resp B/P (MAP) Pulse Ox O2 Delivery O2 Flow Rate FiO2 03/24/18 09:24 82 132/92 03/24/18 09:21 99 Room Air 03/24/18 08:04 18 03/24/18 04:00 98.6 98.6 Labs Labs Laboratory Tests Test 03/23/18 21:15 03/23/18 21:26 03/23/18 23:50 03/24/18 04:45 White Blood Count 10.9 x10^3/uL (4.0-11.0) 10.6 x10^3/uL (4.0-11.0) Red Blood Count 4.51 x10^6/uL (4.30-5.70) 4.14 x10^6/uL (4.30-5.70) Hemoglobin 14.4 g/dL (13.0-17.5) 13.0 g/dL (13.0-17.5) Hematocrit 40.8 % (39.0-53.0) 37.6 % (39.0-53.0) Mean Corpuscular Volume 91 fL (79-100) 91 fL (79-100) Mean Corpuscular Hemoglobin 32 pg (25-35) 32 pg (25-35) Mean Corpuscular Hemoglobin Concent 35 g/dL (31-37) 35 g/dL (31-37) Red Cell Distribution Width 13.6 % (11.5-14.5) 14.0 % (11.5-14.5) Platelet Count 327 x10^3/uL (140-400) 288 x10^3/uL (140-400) Neutrophils (%) (Auto) 84 % (31-73) Lymphocytes (%) (Auto) 10 % (24-48) Monocytes (%) (Auto) 5 % (0-9) Eosinophils (%) (Auto) 1 % (0-3) Basophils (%) (Auto) 0 % (0-3) Neutrophils # (Auto) 9.2 x10^3uL (1.8-7.7) Lymphocytes # (Auto) 1.1 x10^3/uL (1.0-4.8) Monocytes # (Auto) 0.5 x10^3/uL (0.0-1.1) Eosinophils # (Auto) 0.1 x10^3/uL (0.0-0.7) Basophils # (Auto) 0.0 x10^3/uL (0.0-0.2) Prothrombin Time 11.7 SEC (11.7-14.0) Prothromb Time International Ratio 0.9 (0.8-1.1) Sodium Level 142 mmol/L (136-145) Potassium Level 4.3 mmol/L (3.5-5.1) Chloride Level 104 mmol/L (98-107) Carbon Dioxide Level 29 mmol/L (21-32) Anion Gap 9 (6-14) Blood Urea Nitrogen 16 mg/dL (8-26) Creatinine 1.3 mg/dL (0.7-1.3) Estimated GFR (Cockcroft-Gault) 74.0 BUN/Creatinine Ratio 12 (6-20) Glucose Level 120 mg/dL (70-99) Calcium Level 9.6 mg/dL (8.5-10.1) Total Bilirubin 0.2 mg/dL (0.2-1.0) Aspartate Amino Transf (AST/SGOT) 26 U/L (15-37) Alanine Aminotransferase (ALT/SGPT) 69 U/L (16-63) Alkaline Phosphatase 129 U/L (46-116) Creatine Kinase 240 U/L (39-308) Creatine Kinase MB (Mass) 2.1 ng/mL (0.0-3.6) Creatine Kinase MB Relative Index 0.9 % (0-4) Troponin I Quantitative < 0.017 ng/mL (0.000-0.055) < 0.017 ng/mL (0.000-0.055) < 0.017 ng/mL (0.000-0.055) Total Protein 8.1 g/dL (6.4-8.2) Albumin 4.4 g/dL (3.4-5.0) Albumin/Globulin Ratio 1.2 (1.0-1.7) Lipase 218 U/L (73-393) Ethyl Alcohol Level < 10 mg/dL (0-10) Bedside Troponin I 0.00 ng/ml (<0.08) Heparin Anti-Xa Act, Unfractionated 0.22 IU/mL (0.30-0.70) Triglycerides Level 81 mg/dL (0-150) Cholesterol Level 162 mg/dL (0-200) LDL Cholesterol, Calculated 101 mg/dL (0-100) VLDL Cholesterol, Calculated 16 mg/dL (0-40) Non-HDL Cholesterol Calculated 117 mg/dL (0-129) HDL Cholesterol 45 mg/dL (40-60) Cholesterol/HDL Ratio 3.6 Thyroid Stimulating Hormone (TSH) 0.858 uIU/mL (0.358-3.74) Laboratory Tests Test 03/23/18 21:15 03/23/18 21:26 03/23/18 23:50 11/4/18 04:45 White Blood Count 10.9 x10^3/uL (4.0-11.0) 10.6 x10^3/uL (4.0-11.0) Red Blood Count 4.51 x10^6/uL (4.30-5.70) 4.14 x10^6/uL (4.30-5.70) Hemoglobin 14.4 g/dL (13.0-17.5) 13.0 g/dL (13.0-17.5) Hematocrit 40.8 % (39.0-53.0) 37.6 % (39.0-53.0) Mean Corpuscular Volume 91 fL (79-100) 91 fL (79-100) Mean Corpuscular Hemoglobin 32 pg (25-35) 32 pg (25-35) Mean Corpuscular Hemoglobin Concent 35 g/dL (31-37) 35 g/dL (31-37) Red Cell Distribution Width 13.6 % (11.5-14.5) 14.0 % (11.5-14.5) Platelet Count 327 x10^3/uL (140-400) 288 x10^3/uL (140-400) Neutrophils (%) (Auto) 84 % (31-73) Lymphocytes (%) (Auto) 10 % (24-48) Monocytes (%) (Auto) 5 % (0-9) Eosinophils (%) (Auto) 1 % (0-3) Basophils (%) (Auto) 0 % (0-3) Neutrophils # (Auto) 9.2 x10^3uL (1.8-7.7) Lymphocytes # (Auto) 1.1 x10^3/uL (1.0-4.8) Monocytes # (Auto) 0.5 x10^3/uL (0.0-1.1) Eosinophils # (Auto) 0.1 x10^3/uL (0.0-0.7) Basophils # (Auto) 0.0 x10^3/uL (0.0-0.2) Prothrombin Time 11.7 SEC (11.7-14.0) Prothromb Time International Ratio 0.9 (0.8-1.1) Sodium Level 142 mmol/L (136-145) Potassium Level 4.3 mmol/L (3.5-5.1) Chloride Level 104 mmol/L (98-107) Carbon Dioxide Level 29 mmol/L (21-32) Anion Gap 9 (6-14) Blood Urea Nitrogen 16 mg/dL (8-26) Creatinine 1.3 mg/dL (0.7-1.3) Estimated GFR (Cockcroft-Gault) 74.0 BUN/Creatinine Ratio 12 (6-20) Glucose Level 120 mg/dL (70-99) Calcium Level 9.6 mg/dL (8.5-10.1) Total Bilirubin 0.2 mg/dL (0.2-1.0) Aspartate Amino Transf (AST/SGOT) 26 U/L (15-37) Alanine Aminotransferase (ALT/SGPT) 69 U/L (16-63) Alkaline Phosphatase 129 U/L (46-116) Creatine Kinase 240 U/L (39-308) Creatine Kinase MB (Mass) 2.1 ng/mL (0.0-3.6) Creatine Kinase MB Relative Index 0.9 % (0-4) Troponin I Quantitative < 0.017 ng/mL (0.000-0.055) < 0.017 ng/mL (0.000-0.055) < 0.017 ng/mL (0.000-0.055) Total Protein 8.1 g/dL (6.4-8.2) Albumin 4.4 g/dL (3.4-5.0) Albumin/Globulin Ratio 1.2 (1.0-1.7) Lipase 218 U/L (73-393) Ethyl Alcohol Level < 10 mg/dL (0-10) Bedside Troponin I 0.00 ng/ml (<0.08) Heparin Anti-Xa Act, Unfractionated 0.22 IU/mL (0.30-0.70) Triglycerides Level 81 mg/dL (0-150) Cholesterol Level 162 mg/dL (0-200) LDL Cholesterol, Calculated 101 mg/dL (0-100) VLDL Cholesterol, Calculated 16 mg/dL (0-40) Non-HDL Cholesterol Calculated 117 mg/dL (0-129) HDL Cholesterol 45 mg/dL (40-60) Cholesterol/HDL Ratio 3.6 Thyroid Stimulating Hormone (TSH) 0.858 uIU/mL (0.358-3.74) Assessment/Plan Assessment/Plan 1. Chest pain with atypical features. EKG showed suspicious changes for lateral wall VT serial cardiac enzymes were negative. 2-D echo showed normal LV systolic function without any wall motion abnormalities. Symptoms could be related to vasospasm. Importance of abstinence from cocaine use reemphasized. We will consider ischemic workup in the form of stress test as an outpatient. 2. Hypertension: Blood pressure controlled since admission Thank you for your consultation BENNY AVILES MD Mar 24, 2018 10:38
--- NOTE | 2018-03-24 15:07 | PDOC3 ---
Discharge Summary Visit Information Date of Admission: Mar 23, 2018 Date of Discharge: Mar 24, 2018 Admitting Diagnosis: Coronary vasospasm, Epigastric abdominal pain Final Diagnosis Gastritis Brief Hospital Course Allergies Allergies Coded Allergies Type Severity Reaction Last Updated Verified lisinopril Allergy Intermediate 01/20/18 Yes Vital Signs Vital Signs Date Time Temp Pulse Resp B/P (MAP) Pulse Ox O2 Delivery O2 Flow Rate FiO2 03/24/18 12:00 78 16 130/75 (93) 96 Room Air 03/24/18 08:00 98.4 98.4 Lab Results Laboratory Tests Test 03/23/18 21:15 03/23/18 21:26 03/23/18 23:50 03/24/18 04:45 White Blood Count 10.9 x10^3/uL (4.0-11.0) 10.6 x10^3/uL (4.0-11.0) Red Blood Count 4.51 x10^6/uL (4.30-5.70) 4.14 x10^6/uL (4.30-5.70) Hemoglobin 14.4 g/dL (13.0-17.5) 13.0 g/dL (13.0-17.5) Hematocrit 40.8 % (39.0-53.0) 37.6 % (39.0-53.0) Mean Corpuscular Volume 91 fL (79-100) 91 fL (79-100) Mean Corpuscular Hemoglobin 32 pg (25-35) 32 pg (25-35) Mean Corpuscular Hemoglobin Concent 35 g/dL (31-37) 35 g/dL (31-37) Red Cell Distribution Width 13.6 % (11.5-14.5) 14.0 % (11.5-14.5) Platelet Count 327 x10^3/uL (140-400) 288 x10^3/uL (140-400) Neutrophils (%) (Auto) 84 % (31-73) Lymphocytes (%) (Auto) 10 % (24-48) Monocytes (%) (Auto) 5 % (0-9) Eosinophils (%) (Auto) 1 % (0-3) Basophils (%) (Auto) 0 % (0-3) Neutrophils # (Auto) 9.2 x10^3uL (1.8-7.7) Lymphocytes # (Auto) 1.1 x10^3/uL (1.0-4.8) Monocytes # (Auto) 0.5 x10^3/uL (0.0-1.1) Eosinophils # (Auto) 0.1 x10^3/uL (0.0-0.7) Basophils # (Auto) 0.0 x10^3/uL (0.0-0.2) Prothrombin Time 11.7 SEC (11.7-14.0) Prothromb Time International Ratio 0.9 (0.8-1.1) Sodium Level 142 mmol/L (136-145) Potassium Level 4.3 mmol/L (3.5-5.1) Chloride Level 104 mmol/L (98-107) Carbon Dioxide Level 29 mmol/L (21-32) Anion Gap 9 (6-14) Blood Urea Nitrogen 16 mg/dL (8-26) Creatinine 1.3 mg/dL (0.7-1.3) Estimated GFR (Cockcroft-Gault) 74.0 BUN/Creatinine Ratio 12 (6-20) Glucose Level 120 mg/dL (70-99) Calcium Level 9.6 mg/dL (8.5-10.1) Total Bilirubin 0.2 mg/dL (0.2-1.0) Aspartate Amino Transf (AST/SGOT) 26 U/L (15-37) Alanine Aminotransferase (ALT/SGPT) 69 U/L (16-63) Alkaline Phosphatase 129 U/L (46-116) Creatine Kinase 240 U/L (39-308) Creatine Kinase MB (Mass) 2.1 ng/mL (0.0-3.6) Creatine Kinase MB Relative Index 0.9 % (0-4) Troponin I Quantitative < 0.017 ng/mL (0.000-0.055) < 0.017 ng/mL (0.000-0.055) < 0.017 ng/mL (0.000-0.055) Total Protein 8.1 g/dL (6.4-8.2) Albumin 4.4 g/dL (3.4-5.0) Albumin/Globulin Ratio 1.2 (1.0-1.7) Lipase 218 U/L (73-393) Ethyl Alcohol Level < 10 mg/dL (0-10) Bedside Troponin I 0.00 ng/ml (<0.08) Heparin Anti-Xa Act, Unfractionated 0.22 IU/mL (0.30-0.70) Triglycerides Level 81 mg/dL (0-150) Cholesterol Level 162 mg/dL (0-200) LDL Cholesterol, Calculated 101 mg/dL (0-100) VLDL Cholesterol, Calculated 16 mg/dL (0-40) Non-HDL Cholesterol Calculated 117 mg/dL (0-129) HDL Cholesterol 45 mg/dL (40-60) Cholesterol/HDL Ratio 3.6 Thyroid Stimulating Hormone (TSH) 0.858 uIU/mL (0.358-3.74) Test 03/24/18 11:55 Heparin Anti-Xa Act, Unfractionated 0.29 IU/mL (0.30-0.70) Laboratory Tests Test 03/23/18 21:15 03/23/18 21:26 03/23/18 23:50 03/24/18 04:45 White Blood Count 10.9 x10^3/uL (4.0-11.0) 10.6 x10^3/uL (4.0-11.0) Red Blood Count 4.51 x10^6/uL (4.30-5.70) 4.14 x10^6/uL (4.30-5.70) Hemoglobin 14.4 g/dL (13.0-17.5) 13.0 g/dL (13.0-17.5) Hematocrit 40.8 % (39.0-53.0) 37.6 % (39.0-53.0) Mean Corpuscular Volume 91 fL (79-100) 91 fL (79-100) Mean Corpuscular Hemoglobin 32 pg (25-35) 32 pg (25-35) Mean Corpuscular Hemoglobin Concent 35 g/dL (31-37) 35 g/dL (31-37) Red Cell Distribution Width 13.6 % (11.5-14.5) 14.0 % (11.5-14.5) Platelet Count 327 x10^3/uL (140-400) 288 x10^3/uL (140-400) Neutrophils (%) (Auto) 84 % (31-73) Lymphocytes (%) (Auto) 10 % (24-48) Monocytes (%) (Auto) 5 % (0-9) Eosinophils (%) (Auto) 1 % (0-3) Basophils (%) (Auto) 0 % (0-3) Neutrophils # (Auto) 9.2 x10^3uL (1.8-7.7) Lymphocytes # (Auto) 1.1 x10^3/uL (1.0-4.8) Monocytes # (Auto) 0.5 x10^3/uL (0.0-1.1) Eosinophils # (Auto) 0.1 x10^3/uL (0.0-0.7) Basophils # (Auto) 0.0 x10^3/uL (0.0-0.2) Prothrombin Time 11.7 SEC (11.7-14.0) Prothromb Time International Ratio 0.9 (0.8-1.1) Sodium Level 142 mmol/L (136-145) Potassium Level 4.3 mmol/L (3.5-5.1) Chloride Level 104 mmol/L (98-107) Carbon Dioxide Level 29 mmol/L (21-32) Anion Gap 9 (6-14) Blood Urea Nitrogen 16 mg/dL (8-26) Creatinine 1.3 mg/dL (0.7-1.3) Estimated GFR (Cockcroft-Gault) 74.0 BUN/Creatinine Ratio 12 (6-20) Glucose Level 120 mg/dL (70-99) Calcium Level 9.6 mg/dL (8.5-10.1) Total Bilirubin 0.2 mg/dL (0.2-1.0) Aspartate Amino Transf (AST/SGOT) 26 U/L (15-37) Alanine Aminotransferase (ALT/SGPT) 69 U/L (16-63) Alkaline Phosphatase 129 U/L (46-116) Creatine Kinase 240 U/L (39-308) Creatine Kinase MB (Mass) 2.1 ng/mL (0.0-3.6) Creatine Kinase MB Relative Index 0.9 % (0-4) Troponin I Quantitative < 0.017 ng/mL (0.000-0.055) < 0.017 ng/mL (0.000-0.055) < 0.017 ng/mL (0.000-0.055) Total Protein 8.1 g/dL (6.4-8.2) Albumin 4.4 g/dL (3.4-5.0) Albumin/Globulin Ratio 1.2 (1.0-1.7) Lipase 218 U/L (73-393) Ethyl Alcohol Level < 10 mg/dL (0-10) Bedside Troponin I 0.00 ng/ml (<0.08) Heparin Anti-Xa Act, Unfractionated 0.22 IU/mL (0.30-0.70) Triglycerides Level 81 mg/dL (0-150) Cholesterol Level 162 mg/dL (0-200) LDL Cholesterol, Calculated 101 mg/dL (0-100) VLDL Cholesterol, Calculated 16 mg/dL (0-40) Non-HDL Cholesterol Calculated 117 mg/dL (0-129) HDL Cholesterol 45 mg/dL (40-60) Cholesterol/HDL Ratio 3.6 Thyroid Stimulating Hormone (TSH) 0.858 uIU/mL (0.358-3.74) Test 03/24/18 11:55 Heparin Anti-Xa Act, Unfractionated 0.29 IU/mL (0.30-0.70) Brief Hospital Course 42 yo p/w cc of chest pain and abdominal pain, found with EKG concerning for STEMI, negative troponins. No fever noted, no sick contacts. Feeling better after overnight on protonix and heparin. Heparin d/c'd after troponins trended out negative. Still with some epigastric tenderness. US reviewed with no duct disease, liver not appearing diseased. Discussed with his parents bedside. Echo performed prior to d/c showing no wall motion abnormalities, emphasized need to cease cocaine and his epigastric pain improved with PPI, prescribed on d/c home. A/P: STEMI - by [place] criteria on EKG, trended troponins, which were negative as well as CK, CKMB. Will d/c Heparin GTT. Cont NTG, ASA, lipids ok, A1c pending, TSH WNL. Could be cocaine-induced vasospasm, though he was not acutely intoxicated. Cardiology following. His pain is improved with morphine for now, seen by cardiology with his normal stress testing recently simply needs repeat outpatient Epigastric abdominal pain - preceded his chest pain, could be PUD, gastritis, hepatitis, though his ALT of 69 and ALP of 129 and otherwise normal LFTs don't imply acute hepatitis, will get US and start on IV PPI. May consult GI outpatient resolved as he found the most improvement with a PPI HTN - on CCB and ARB, will cont. Will add BB once concern for interaction with cocaine is abated Smoker - counseled on cessation, offered nicotine patch, he declines Marijuana abuse - counseled on cessation Cocaine use - states this was an infrequent event, counseled against use OK to leave with GI f/u and PPI. Discharge Information Condition at Discharge: Improved Follow Up: Weeks (2) Disposition/Orders: D/C to Home Scheduled Amlodipine Besylate (Amlodipine Besylate) 10 Mg Tablet, 10 MG PO DAILY for 30 Days, #90 Prescribed by: ADALBERTO HUYNH on 08/26/17 1046 Last Action: Continued on 03/24/18147 by ALAN BILLY MD Aspirin (Aspirin) 81 Mg Tab.chew, 1 TAB PO DAILY for reduce risk of heart attack , #30 Ref 3 (Reported) Entered as Reported by: SAMRA HERNANDEZ on 03/24/18128 Last Action: Continued on 03/24/18147 by ALAN BILLY MD Losartan Potassium (Losartan Potassium) 50 Mg Tablet, 50 MG PO DAILY for hypertension, (Reported) Entered as Reported by: SAMRA HERNANDEZ on 03/24/18128 Last Action: Continued on 03/24/18147 by ALAN BILLY MD Pantoprazole Sodium (Protonix) 40 Mg Granpkt.dr, 40 MG PO DAILY for Gastritis for 30 Days, #30 Prescribed by: ALAN BILLY MD on 03/24/18 1512 ALAN BILLY MD Mar 24, 2018 15:07
[2018-03-24] MEDS ORDERED: PANT40GR PO (15:12)
--- NOTE | 2018-03-24 17:25 | CARD ---
MR#: [id number] Date of Study: 03/24/2018 Ordering Physician: BENNY HAY, Referring Physician: ALAN BILLY, Tech: Violetta Wilkinson RDCS APPROVED REPORT EXAM: Two-dimensional and M-mode echocardiogram with Doppler and color Doppler. Other Information HR: 80bpm Rhythm : NSR INDICATION Chest Pain 2D DIMENSIONS Left Atrium(2D)3.4 (1.6-4.0cm)IVSd1.5 (0.7-1.1cm) Aortic Root(2D)3.9 (2.0-3.7cm)LVDd4.1 (3.9-5.9cm) LVOT Diameter2.3 (1.8-2.4cm)PWd1.5 (0.7-1.1cm) LVDs2.4 (2.5-4.0cm)FS (%) 41.2 % SV53.5 mlLVEF(%)72.6 (>50%) Aortic Valve AoV Peak Wang.141.8cm/sAoV VTI21.8cm AO Peak GR.8.0mmHgLVOT Peak Wang.114.7cm/s LVOT VTI 22.00cmAO Mean GR.4mmHg RAFIQ (VMAX)3.33fq2YAZ (VTI)4.21cm2 Mitral Valve MV E Cnxeiirz02.2cm/sMV DECEL [id number] MV A Bjkbwjgz34.0cm/sMV TLQ83bl E/A Ratio1.2MVA (PHT)3.90cm2 TDI E/Lateral E'9.1E/Medial E'10.4 Pulmonary Valve PV Peak Ldakhqvv781.3cm/sPV Peak Grad.4mmHg Pulmonary Vein S1 Jpwnfdqa16.8cm/sD2 Ysfhqpfd93.9cm/s LEFT VENTRICLE The left ventricle is normal size. There is mild to moderate concentric left ventricular hypertrophy. Left ventricle systolic function is normal. The Ejection Fraction is 60-65%. There is normal LV segm ental wall motion. Transmitral Doppler flow pattern is Grade II-pseudonormal filling dynamics. RIGHT VENTRICLE The right ventricle is normal size. There is normal right ventricular wall thickness. The right ventr icular systolic function is normal. ATRIA The left atrium size is normal. The right atrium size is normal. The interatrial septum is intact wit h no evidence for an atrial septal defect or patent foramen ovale as noted on 2-D or Doppler imaging. AORTIC VALVE The aortic valve is normal in structure and function. Doppler and Color Flow revealed trace aortic re gurgitation. There is no significant aortic valvular stenosis. MITRAL VALVE The mitral valve is normal in structure and function. There is no mitral valve stenosis. Doppler and Color Flow revealed no mitral valve regurgitation noted. TRICUSPID VALVE The tricuspid valve is normal in structure and function. Doppler and Color Flow revealed trace tricus pid regurgitation. There is no tricuspid valve stenosis. PULMONIC VALVE The pulmonary valve is normal in structure and function. Doppler and Color Flow revealed trace pulmon ic valvular regurgitation. There is no pulmonic valvular stenosis. GREAT VESSELS The aortic root is mildly enlarged. The ascending aorta is normal in size. Normal pulmonary venous fl ow (Doppler). The IVC is normal in size and collapses >50% with inspiration. PERICARDIAL EFFUSION There is no evidence of significant pericardial effusion. Critical Notification Critical Value: No <Conclusion> Left ventricle systolic function is normal. The Ejection Fraction is 60-65%. There is normal LV segmental wall motion. Doppler and Color Flow revealed trace tricuspid regurgitation. There is no evidence of significant pericardial effusion. Signed by : Benny Hay, Electronically Approved : 03/24/2018 17:23:54
[2018-03-25 00:06] LABS: HEMOGLOBIN A1C 5.4 % (4.8-5.6)
== END 2018-03-24 15:47 | disposition home or self-care (01) | DRG 282 ==
LOC: ER 21:03 → 1 WEST ICU 22:08
PROVIDERS: ADMIT Internal Medicine; ATTEND Internal Medicine
DX: I21.3 ST elevation (STEMI) myocardial infarction of unspecified site (principal); K75.9 Inflammatory liver disease, unspecified; I20.1 Angina pectoris with documented spasm; K29.70 Gastritis, unspecified, without bleeding; F14.90 Cocaine use, unspecified, uncomplicated; I10 Essential (primary) hypertension; F17.200 Nicotine dependence, unspecified, uncomplicated; F12.10 Cannabis abuse, uncomplicated; F14.988 Cocaine use, unspecified with other cocaine-induced disorder; K27.9 Peptic ulcer, site unspecified, unspecified as acute or chronic, without hemorrhage or perforation; Z82.49 Family history of ischemic heart disease and other diseases of the circulatory system
CPT/HCPCS: 36415; 71045; 76700; 80053; 80061; 82553; 83036; 83690; 84443; 84484; 85025; 85027; 85520; 85610; 87641; 93005; 93306; 96365; 96366; 96375; 99291; C9113; G0480; J1644; J2060; J2270; J3010; J3490

== ENCOUNTER 2018-11-28 09:40 | Inpatient (IN) | payer BC ==
[2018-11-28] VITALS (7 sets, daily range): BP systolic 119–137; BP diastolic 73–87
[~2018-11-28] VITALS: Ht 188 cm; Wt 122.5 kg
[~2018-11-28 09:40] MED LIST changes: -AMLO10TA6 PO; +AMLO10TA8 PO; +ASPI-630 PO; +LOSA-73 PO; +PANT40GR PO
[2018-11-28 10:05] LABS: BASO % 1 % (0-3); EOS # 0.1 x10^3/uL (0.0-0.7); EOS % 3 % (0-3); HEMATOCRIT 40.2 % (39.0-53.0); HEMOGLOBIN 13.7 g/dL (13.0-17.5); LYMPH # 1.6 x10^3/uL (1.0-4.8); LYMPH % 34 % (24-48); MEAN CORPUSCULAR HEMOGLOBIN 31 pg (25-35); MEAN CORPUSCULAR HGB CONC 34 g/dL (31-37); MEAN CORPUSCULAR VOLUME 90 fL (79-100); MONO # 0.4 x10^3/uL (0.0-1.1); MONO % 8 % (0-9); NEUT # 2.6 x10^3/uL (1.8-7.7); NEUT % 55 % (31-73); PLATELET COUNT 330 x10^3/uL (140-400); RED BLOOD COUNT 4.47 x10^6/uL (4.30-5.70); WHITE BLOOD COUNT 4.8 x10^3/uL (4.0-11.0)
--- NOTE | 2018-11-28 10:12 | RAD ---
CHEST AP ONLY History: Chest pain Comparison: March 23, 2018 Findings: Single view of the chest is submitted. Apparent elevation of the right hemidiaphragm is unchanged. Pericardial cardiac silhouette is stable. There is no new infiltrate, pleural fluid, pneumothorax. Impression: 1. No acute radiographic abnormality is identified. Electronically signed by: Omari Blackburn MD (11/28/2018 10:09 AM) [id number]
[2018-11-28 10:13] LABS: CALCIUM 9.3 mg/dL (8.5-10.1); CREATININE 1.1 mg/dL (0.7-1.3); GFR 89.3; POTASSIUM 4.5 mmol/L (3.5-5.1)
--- NOTE | 2018-11-28 10:14 | PHYS DOC ---
Past Medical History Past Medical History: Hypertension Past Surgical History: Tonsillectomy Smoking: Cigarettes Alcohol Use: Occasionally Drug Use: Cocaine, Marijuana Adult General Chief Complaint Chief Complaint: CHEST PAIN HPI HPI 43-year-old male presenting to the emergency department today with chest pain. He has been having intermittent chest pain for a week or 2 which is a pressure sensation is nonradiating in the center of his chest. It is worse when he exerts himself. He works at [employer] and while he is exerting himself at work today he had terrible pressure sensation sitting on his chest. EMS was called. He was initially called a STEMI in route by EMS providers. Dr. Albert owens ardiologist was here when the EKG was transmitted asked that we cancel the STEMI. On arrival the patient's pain is improving. He was given 4 baby aspirins I EMS prior to arrival. Review of systems is negative for vomiting. Positive for diaphoresis. Negative for abdominal pain fevers or chills. All other review of systems is negative. ED course: 43-year-old male presenting with chest pain and pressure. EKG obtained and reviewed by myself shows sinus rhythm with a regular rate. ST segments show mild repolarization in lead V2 lead V3 and V4. Patient has inferior T-wave inversions and lateral T-wave inversions. Does not meet STEMI criteria. Chest x-ray and blood work ordered here in the emergency room. Initial troponin is negative. Otherwise blood work is unremarkable. Chest x-ray negative. We will admit the patient for cardiac consultation. Allergies Allergies Allergies Coded Allergies Type Severity Reaction Last Updated Verified lisinopril Allergy Intermediate 01/20/18 Yes Physical Exam Physical Exam Constitutional: Well developed, well nourished, no acute distress, non-toxic appearance. [] HENT: Normocephalic, atraumatic, bilateral external ears normal, oropharynx moist, no oral exudates, nose normal. [] Eyes: PERRLA, EOMI, conjunctiva normal, no discharge. [] Neck: Normal range of motion, no tenderness, supple, no stridor. [] Cardiovascular:Heart rate regular rhythm, no murmur [] Lungs & Thorax: Bilateral breath sounds clear to auscultation [] Abdomen: Bowel sounds normal, soft, no tenderness, no masses, no pulsatile masses. [] Skin: Warm, dry, no erythema, no rash. [] Back: No tenderness, no CVA tenderness. [] Extremities: No tenderness, no cyanosis, no clubbing, ROM intact, no edema. [] Neurologic: Alert and oriented X 3, normal motor function, normal sensory function, no focal deficits noted. [] Psychologic: Affect normal, judgement normal, mood normal. [] Current Patient Data Vital Signs Vital Signs Date Time Temp Pulse Resp B/P (MAP) Pulse Ox O2 Delivery O2 Flow Rate FiO2 11/28/18 09:43 98.7 89 20 125/92 (103) 98 Room Air 98.7 Lab Values Laboratory Tests Test 11/28/18 09:50 White Blood Count 4.8 x10^3/uL (4.0-11.0) Red Blood Count 4.47 x10^6/uL (4.30-5.70) Hemoglobin 13.7 g/dL (13.0-17.5) Hematocrit 40.2 % (39.0-53.0) Mean Corpuscular Volume 90 fL (79-100) Mean Corpuscular Hemoglobin 31 pg (25-35) Mean Corpuscular Hemoglobin Concent 34 g/dL (31-37) Red Cell Distribution Width 14.0 % (11.5-14.5) Platelet Count 330 x10^3/uL (140-400) Neutrophils (%) (Auto) 55 % (31-73) Lymphocytes (%) (Auto) 34 % (24-48) Monocytes (%) (Auto) 8 % (0-9) Eosinophils (%) (Auto) 3 % (0-3) Basophils (%) (Auto) 1 % (0-3) Neutrophils # (Auto) 2.6 x10^3/uL (1.8-7.7) Lymphocytes # (Auto) 1.6 x10^3/uL (1.0-4.8) Monocytes # (Auto) 0.4 x10^3/uL (0.0-1.1) Eosinophils # (Auto) 0.1 x10^3/uL (0.0-0.7) Basophils # (Auto) 0.0 x10^3/uL (0.0-0.2) Prothrombin Time 12.5 SEC (11.7-14.0) Prothrombin Time INR 1.0 (0.8-1.1) PTT 30 SEC (24-38) Sodium Level 141 mmol/L (136-145) Potassium Level 4.5 mmol/L (3.5-5.1) Chloride Level 106 mmol/L (98-107) Carbon Dioxide Level 27 mmol/L (21-32) Anion Gap 8 (6-14) Blood Urea Nitrogen 18 mg/dL (8-26) Creatinine 1.1 mg/dL (0.7-1.3) Estimated GFR (Cockcroft-Gault) 89.3 Glucose Level 108 mg/dL (70-99) H Calcium Level 9.3 mg/dL (8.5-10.1) Total Bilirubin 0.4 mg/dL (0.2-1.0) Direct Bilirubin 0.1 mg/dL (0.0-0.2) Aspartate Amino Transferase (AST) 24 U/L (15-37) Alanine Aminotransferase (ALT) 45 U/L (16-63) Alkaline Phosphatase 128 U/L (46-116) H Troponin I Quantitative < 0.017 ng/mL (0.000-0.055) QG-Sqg-S-Type Natriuretic Peptide 11 pg/mL (0-124) Total Protein 7.6 g/dL (6.4-8.2) Albumin 4.1 g/dL (3.4-5.0) Lipase 205 U/L (73-393) Thyroid Stimulating Hormone (TSH) 0.668 uIU/mL (0.358-3.74) Laboratory Tests 11/28/18 09:50 Laboratory Tests 11/28/18 09:50 EKG EKG [] Radiology/Procedures Radiology/Procedures [] Course & Med Decision Making Course & Med Decision Making Pertinent Labs and Imaging studies reviewed. (See chart for details) [] Dragon Disclaimer Dragon Disclaimer This electronic medical record was generated, in whole or in part, using a voice recognition dictation system. Departure Departure Referrals: UNKNOWN PCP NAME (PCP) SHANON CALDERON MD Nov 28, 2018 10:14
[2018-11-28 10:16] LABS: PROTHROMBIN TIME PATIENT 12.5 SEC (11.7-14.0)
[2018-11-28 10:18] LABS: ALBUMIN 4.1 g/dL (3.4-5.0); DIRECT BILIRUBIN 0.1 mg/dL (0.0-0.2); TOTAL BILIRUBIN 0.4 mg/dL (0.2-1.0); TOTAL PROTEIN 7.6 g/dL (6.4-8.2)
--- NOTE | 2018-11-28 10:43 | PDOC2 ---
KENAN BORREGO COLLECTION SPECIALIST 11/28/18 1043: CARDIAC CONSULT DATE OF CONSULT Date of Consult DATE: 11/28/18 TIME: 10:40 REASON FOR CONSULT Reason for Consult: chest pain REFERRING PHYSICIAN Referring Physician: Angel SOURCE Source: Chart review, Patient HISTORY OF PRESENT ILLNESS HISTORY OF PRESENT ILLNESS This is a pleasant 43 yo male admitted for complains of chest pain. He works for [employer] 4 days a week and has not been having any symptoms till today. He went to work at 0730 and was doing heavy lifting and at 0800 he went to the bathroom and felt lightheaded. He went back to wrok and started having left chest pressure that radiated to his left arm. This was sustained for about an hour to which EMS was called and noted abnormal EKG. Associated symptoms include SOA and felt like he was going to pass out and also with diaphoresis. No prior symptoms similar to this in the past and no hx of CV disorders. No recent MVA, falls or any injury. He used cocaine before and reports last yr use. Positive for HTN with 2 meds and tobacco use. PAST MEDICAL HISTORY Cardiovascular: HTN Pulmonary: No pertinent hx CENTRAL NERVOUS SYSTEM: Other (No pertinent history) GI: GERD, Peptic Ulcer disease (last yr) Heme/Onc: No pertinent hx Hepatobiliary: No pertinent hx Psych: No pertinent hx Musculoskeletal: Other (none) Rheumatologic: No pertinent hx Infectious disease: No pertinent hx ENT: No pertinent hx Renal/: No pertinent hx Endocrine: No pertinent hx Dermatology: No pertinent hx PAST SURGICAL HISTORY Past Surgical History: Tonsillectomy FAMILY HISTORY Family History: Hypertension SOCIAL HISTORY Smoke: <1 pack per day ALCOHOL: occassional Drugs: Cocaine (last yr) Lives: with Family ALLERGIES ALLERGIES: Coded Allergies: lisinopril (Verified Allergy, Intermediate, 01/20/18) ROS Review of System 14 point ROS evaluated with pertinent positives noted per HPI PHYSICAL EXAM General: Alert, Oriented X3, Cooperative, No acute distress HEENT: Atraumatic, Mucous membr. moist/pink Lungs: Clear to auscultation, Normal air movement Heart: Regular rate (SR), Normal S1, Normal S2, No murmurs Abdomen: Soft, No tenderness Extremities: No cyanosis, No edema Skin: No breakdown, No significant lesion Neuro: Normal speech, Sensation intact Psych/Mental Status: Mental status NL, Mood NL MUSCULOSKELETAL: Osteoarthritic changes both hands VITALS/I&O VITALS/I&O: Vital Signs Date Time Temp Pulse Resp B/P (MAP) Pulse Ox O2 Delivery O2 Flow Rate FiO2 11/28/18 09:43 98.7 89 20 125/92 (103) 98 Room Air 98.7 LABS Lab: Laboratory Tests Test 11/28/18 09:50 White Blood Count 4.8 x10^3/uL (4.0-11.0) Red Blood Count 4.47 x10^6/uL (4.30-5.70) Hemoglobin 13.7 g/dL (13.0-17.5) Hematocrit 40.2 % (39.0-53.0) Mean Corpuscular Volume 90 fL (79-100) Mean Corpuscular Hemoglobin 31 pg (25-35) Mean Corpuscular Hemoglobin Concent 34 g/dL (31-37) Red Cell Distribution Width 14.0 % (11.5-14.5) Platelet Count 330 x10^3/uL (140-400) Neutrophils (%) (Auto) 55 % (31-73) Lymphocytes (%) (Auto) 34 % (24-48) Monocytes (%) (Auto) 8 % (0-9) Eosinophils (%) (Auto) 3 % (0-3) Basophils (%) (Auto) 1 % (0-3) Neutrophils # (Auto) 2.6 x10^3/uL (1.8-7.7) Lymphocytes # (Auto) 1.6 x10^3/uL (1.0-4.8) Monocytes # (Auto) 0.4 x10^3/uL (0.0-1.1) Eosinophils # (Auto) 0.1 x10^3/uL (0.0-0.7) Basophils # (Auto) 0.0 x10^3/uL (0.0-0.2) Prothrombin Time 12.5 SEC (11.7-14.0) Prothrombin Time INR 1.0 (0.8-1.1) PTT 30 SEC (24-38) Sodium Level 141 mmol/L (136-145) Potassium Level 4.5 mmol/L (3.5-5.1) Chloride Level 106 mmol/L (98-107) Carbon Dioxide Level 27 mmol/L (21-32) Anion Gap 8 (6-14) Blood Urea Nitrogen 18 mg/dL (8-26) Creatinine 1.1 mg/dL (0.7-1.3) Estimated GFR (Cockcroft-Gault) 89.3 Glucose Level 108 mg/dL (70-99) H Calcium Level 9.3 mg/dL (8.5-10.1) Total Bilirubin 0.4 mg/dL (0.2-1.0) Direct Bilirubin 0.1 mg/dL (0.0-0.2) Aspartate Amino Transferase (AST) 24 U/L (15-37) Alanine Aminotransferase (ALT) 45 U/L (16-63) Alkaline Phosphatase 128 U/L (46-116) H Troponin I Quantitative < 0.017 ng/mL (0.000-0.055) DQ-Rnf-K-Type Natriuretic Peptide 11 pg/mL (0-124) Total Protein 7.6 g/dL (6.4-8.2) Albumin 4.1 g/dL (3.4-5.0) Lipase 205 U/L (73-393) Laboratory Tests 11/28/18 09:50 Laboratory Tests 11/28/18 09:50 ASSESSMENT/PLAN ASSESSMENT/PLAN 1. Chest pain: UA features. abnormal EKG, will rule out ischemia and coronary dissection, initial trop nml 2. HTN 3. Tobaccoism Recommendations 1. TTE, lipids, TSH, UDS, trend troponin 2. Smoking cessation 3. LHC, risks and benefits discussed, agreeable to proceed. ASA received 4. Will resume BP regimen post cath. Pt does take baby ASA at home daily NELLY ALVARES MD 11/28/18 1617: CARDIAC CONSULT ASSESSMENT/PLAN ASSESSMENT/PLAN Patient seen and examined. Agree with above nurse practitioner note. 43-year-old man with hypertension tobaccoism and multiple risk factors came in with concerning symptoms of unstable angina and abnormal EKG. After discussion of the risks and benefits he was taken to the catheter lab. Coronary angiography demonstrated normal coronary arteries. He likely has some LVH for hypertension. Continue risk factor modification. Okay to discharge from a cardiac standpoint. KENAN BORREGO APRN Nov 28, 2018 10:43 NELLY ALVARES MD Nov 28, 2018 16:17
[2018-11-28] MEDS ORDERED: ONDANSETRON PF 4 MG/2 ML VIAL. IV PRN (10:45)
[2018-11-28] MEDS ORDERED: MORPHINE SULFATE 2 MG/ML VIAL. IV PRN (10:45)
[2018-11-28] MEDS ORDERED: IV NORMAL SALINE 1000ML BAG 1,000 ML IV SCH (11:00)
--- NOTE | 2018-11-28 11:40 | EKG ---
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
--- NOTE | 2018-11-28 12:54 | CARD ---
MR#: [id number] Date of Study: 11/28/2018 Ordering Physician: KENAN BORREGO, Referring Physician: JABIER RAMÍREZ Tech: Sharee Edwardsjeanneleif APPROVED REPORT EXAM: Two-dimensional and M-mode echocardiogram with Doppler and color Doppler. Other Information Quality : AverageHR: 80bpm INDICATION Chest Pain RISK FACTORS Hypertension Smoking 2D DIMENSIONS RVDd3.9 (2.9-3.5cm)Left Atrium(2D)3.6 (1.6-4.0cm) IVSd1.6 (0.7-1.1cm)Aortic Root(2D)3.9 (2.0-3.7cm) LVDd4.6 (3.9-5.9cm)LVOT Diameter2.3 (1.8-2.4cm) PWd1.3 (0.7-1.1cm)LVDs2.7 (2.5-4.0cm) FS (%) 43.0 %SV72.4 ml LVEF(%)74.2 (>50%) Aortic Valve AoV Peak Wang.104.9cm/sAoV VTI15.8cm AO Peak GR.4.4mmHgLVOT VTI 13.33cm AO Mean GR.2mmHg Mitral Valve MV E Sykahkyy37.0cm/sMV DECEL [id number] MV A Bcotaero74.7cm/sE/A Ratio0.8 TDI Lateral E' P. V6.44cm/sMedial E' P. V8.56cm/s E/Lateral E'7.5E/Medial E'5.6 Tricuspid Valve TR P. Qxtqzxzc747kb/sRAP [id number] TR Peak Gr.36dwUbYXVH09yeBn Pulmonary Vein S1 Ltmysaeh12.2cm/sS2 Nxyxzmvo31.49cm/s D2 Hwhgqwff85.5cm/sPVa [id number] LEFT VENTRICLE The left ventricle is normal size. There is moderate concentric left ventricular hypertrophy. The lef t ventricular systolic function is normal. The Ejection Fraction is 60-65%. There is normal LV segmen bing wall motion. Transmitral Doppler flow pattern is Grade I-abnormal relaxation pattern. RIGHT VENTRICLE The right ventricle is normal size. There is normal right ventricular wall thickness. The right ventr icular systolic function is normal. ATRIA The left atrium size is normal. The right atrium size is normal. The interatrial septum is intact wit h no evidence for an atrial septal defect or patent foramen ovale as noted on 2-D or Doppler imaging. AORTIC VALVE The aortic valve is normal in structure and function. Doppler and Color Flow revealed no significant aortic regurgitation. There is no significant aortic valvular stenosis. MITRAL VALVE The mitral valve is thickened but opens well. There is no evidence of mitral valve prolapse. There is no mitral valve stenosis. Doppler and Color Flow revealed no mitral valve regurgitation noted. TRICUSPID VALVE The tricuspid valve is normal in structure and function. Doppler and Color Flow revealed trace tricus pid valve regurgitation noted with an estimated PAP of 30 mmHg. There is no tricuspid valve stenosis. PULMONIC VALVE The pulmonary valve is normal in structure and function. Doppler and Color Flow revealed trace pulmon ic valvular regurgitation. GREAT VESSELS The aortic root is borderline enlarged. The ascending aorta is normal in size. The IVC is normal in s ize and collapses >50% with inspiration. PERICARDIAL EFFUSION There is no evidence of significant pericardial effusion. Critical Notification Critical Value: No <Conclusion> The left ventricular systolic function is normal. The Ejection Fraction is 60-65%. There is normal LV segmental wall motion. Transmitral Doppler flow pattern is Grade I-abnormal relaxation pattern. Trace tricuspid valve regurgitation with an estimated PAP of 30 mmHg. There is no evidence of significant pericardial effusion. Signed by : Cornelio Hay, Electronically Approved : 11/28/2018 12:54:17
--- NOTE | 2018-11-28 13:12 | HP ---
ADMIT DATE: 11/28/2018 CHIEF COMPLAINT: Chest pain. HISTORY OF PRESENT ILLNESS: This patient is a pleasant 43-year-old male who does cocaine. He presented with chest pain. Troponin has not bumped up, but he has got some ST changes and T-wave inversions. I discussed the case with the ER physician. We have consulted Cardiology. They have arrived. They are going to go ahead and take him to the chemical laboratory scientist. PAST MEDICAL HISTORY: Tobacco abuse and cocaine abuse. ALLERGIES: None. FAMILY HISTORY: Hypertension. SOCIAL HISTORY: Apparently, he does cocaine. MEDICATIONS: Reviewed, please refer to the MRAD. REVIEW OF SYSTEMS: GENERAL: No history of weight change, weakness or fevers. SKIN: No bruising, hair changes or rashes. EYES: No blurred, double or loss of vision. NOSE AND THROAT: No history of nosebleeds, hoarseness or sore throat. HEART: No history of palpitations or shortness of breath on exertion. He complains of chest pain. LUNGS: Denies cough, hemoptysis, wheezing or shortness of breath. GASTROINTESTINAL: Denies changes in appetite, nausea, vomiting, diarrhea or constipation. GENITOURINARY: No history of frequency, urgency, hesitancy or nocturia. NEUROLOGIC: Denies history of numbness, tingling, tremor or weakness. PSYCHIATRIC: No history of panic, anxiety or depression. ENDOCRINE: No history of heat or cold intolerance, polyuria or polydipsia. EXTREMITIES: Denies muscle weakness, joint pain, pain on walking or stiffness. PHYSICAL EXAMINATION: VITAL SIGNS: Stable. GENERAL: He is alert, cooperative. HEART: Normal S1, S2. LUNGS: Clear. ABDOMEN: Soft. EXTREMITIES: No edema. SKIN: No rash. ENDOCRINE: No thyromegaly. LYMPHATICS: No cervical nodes. HEMATOPOIETIC: No bruising. PSYCHIATRIC: He is depressed and anxious. LABORATORY DATA: Troponin is 0. ASSESSMENT AND PLAN: Chest pain with EKG changes. The patient has been admitted. We are consulting Cardiology. They have seen the patient. They will take him to the chemical laboratory scientist. I will await cardiac catheterization results for now, daily aspirin, serial enzymes, serial EKGs and echocardiogram. JABIER RAMÍREZ DO DR: GEOVANNI/dominick JOB#: [id number] / [id number]
[2018-11-28] MEDS ORDERED: LIDOCAINE 1% PF 2 ML VIAL. ONE (13:17)
[2018-11-28] MEDS ORDERED: IOHEXOL 300 MG/ML 100ML VIAL. ONE (13:19)
[2018-11-28] MEDS ORDERED: NITROGLYCERIN 200 MCG/2 ML SYRINGE FOR CATH/VASC LAB. ONE (13:50)
[2018-11-28] MEDS ORDERED: fentaNYL PF VIAL 100 MCG/2 ML VIAL ONE (13:50)
[2018-11-28] MEDS ORDERED: VERAPAMIL 5 MG/2 ML VIAL. ONE (13:50)
[2018-11-28] MEDS ORDERED: MIDAZOLAM HCL/PF 2 MG/2 ML VIAL. ONE (13:50)
[2018-11-28] MEDS ORDERED: HEPARIN for IV BOLUS 10,000 UNIT/10 ML VIAL. ONE (13:50)
[2018-11-28] MEDS ORDERED: fentaNYL PF VIAL 100 MCG/2 ML VIAL IV ONE (14:15)
[2018-11-28] MEDS ORDERED: MIDAZOLAM HCL/PF 2 MG/2 ML VIAL. IV ONE (14:15)
[2018-11-28] MEDS ORDERED: LIDOCAINE 1% PF 2 ML VIAL. INJ ONE (14:15)
[2018-11-28] MEDS ORDERED: VERAPAMIL 5 MG/2 ML VIAL. IART ONE (14:15)
[2018-11-28] MEDS ORDERED: IOHEXOL 300 MG/ML 100ML VIAL. IART ONE (14:15)
[2018-11-28] MEDS ORDERED: NITROGLYCERIN 200 MCG/2 ML SYRINGE FOR CATH/VASC LAB. IART ONE (14:15)
[2018-11-28] MEDS ORDERED: HEPARIN for IV BOLUS 10,000 UNIT/10 ML VIAL. IART ONE (14:15)
--- NOTE | 2018-11-28 14:39 | CARD ---
MR#: [id number] Date of Study: 11/28/2018 Ordering Physician: KENAN BORREGO, Referring Physician: JABIER RAMÍREZ Tech: RAY MARTINEZ RTR APPROVED REPORT Technologist: RAY MARTINEZ RTR Nurse: Maris Schultz R.N. Procedure(s) performed: MODERATE SEDATION TIME:24 MIN FLUORO TIME: 2.6 MIN DOSE: 51 GYCM2 CONTRAST: 88 LHC, Coronary angiography, Left ventriculography HISTORY : The patient is a 43 year-old male with a history of . INDICATION The indication(s) include : unstable angina , dyspnea. CSHA Clinical Frailty Scale CS Clinical Frailty Scale: Well Heart Failure Heart Failure: No PROCEDURE NARRATIVE CLINICAL INFORMATION: 43 Y.O male with HTN presenting as a possible STEMI from home. Initial EKG consistent with possible i schemic EKG changes w/o STEMI, therefore due to severe chest pain, patient was brought to the cath la b. INFORMED CONSENT: After explaining the risks and benefits of the procedure and alternatives, informed consent was obtained. The patient was brought electively to the cardiac catheterization lab. A timeout was performed confi rming the patient's name, date of , procedure, and site of procedure. All necessary personnel w ere wearing the appropriate protective equipment and radiation monitor devices. (See nursing notes for medications administered). ACCESS: The right wrist was sterilely prepped and draped in the usual fashion. The right wrist was infiltrat ed with 1 mL of 2% lidocaine for subcutaneous anesthesia. A 6 [place] Terumo glide sheath was inserte d into the right radial artery without difficulty. CORONARY ANGIOGRAPHY: Right and left coronary angiography was performed using a 6Fr TIG 4.0 catheter. Left ventricular en d diastolic pressure was obtained with a pigtail catheter and pullback was performed after left ventr iculography. All catheter exchanges and advancements were performed over a guidewire. CLOSURE: At case completion the right radial sheath was removed and a Terumo radial band was applied with 13 m l of air. COMPLICATIONS: The patient tolerated the procedure well and there were no immediate complications. FINDINGS: HEMODYNAMICS: LVEDP 10 mm Hg No gradient on LV to aortic pullback. AO: 128/78 LEFT VENTRICULOGRAM: EF 70% Anterobasal: Normal. Anterolateral: Normal Apical: Normal Diaphragmatic: Normal Posterobasal: Normal CORONARY ANGIOGRAPHY: LM is a large caliber vessel with normal angiographic appearance. LAD is a large caliber vessel with normal angiographic appearance. LCx is a large caliber co-dominant vessel with normal angiographic appearance. OM1 is a large caliber vessel with normal angiographic appearance. RCA is a large caliber co-dominant vessel with normal angiographic appearance. RPDA and RPL are moderate caliber vessels with normal angiographic appearance. Conclusion 1. Normal left sided filling pressures. 2. Normal LV systolic function. EF 70% 3. Normal angiographic appearance of the coronary arteries. Recommendations Further evaluation of non-cardiac cause of chest pain. Risk factor modification. Signed by : Abilio Price, Electronically Approved : 11/28/2018 14:38:19
[2018-11-28] MEDS ORDERED: LISI1TAB3 PO (15:30)
[2018-11-28] MEDS ORDERED: LOSA50TA15 PO (15:30)
[2018-11-28] MEDS ORDERED: AMLO10TA8 PO (15:32)
--- NOTE | 2018-11-28 15:39 | NUR ---
Admission: Patient admitted from cathead operator to room 244. Oriented patient to room. Frequent vital signs being monitored. Arm board and TR band in place. Will continue to monitor. Belongings at bedside.
--- NOTE | 2018-11-28 18:02 | NUR ---
Discharge teaching verbal and written. Reviewed medications, follow up, Chest pain, cardiac cath discharge teaching, smoking cessation, ect. Patient verbalized understanding. Arm board in place. IV removed without complications, catheter tip in-tact. All belongings with patient
--- NOTE | 2018-11-28 18:43 | NUR ---
Patient ambulated off of unit accompanied by family and KINESIOLOGY PROFESSOR
== END 2018-11-28 18:20 | disposition home or self-care (01) | DRG 287 ==
LOC: ER 09:40 → 2 SOUTH 10:30
PROVIDERS: ADMIT Internal Medicine; ATTEND Internal Medicine
PROC: 4A023N7 Measurement of Cardiac Sampling and Pressure, Left Heart, Percutaneous Approach (ICD-10-PCS; principal; 2018-11-28)
PROC: B2111ZZ Fluoroscopy of Multiple Coronary Arteries using Low Osmolar Contrast (ICD-10-PCS; 2018-11-28)
PROC: B2151ZZ Fluoroscopy of Left Heart using Low Osmolar Contrast (ICD-10-PCS; 2018-11-28)
DX: R07.89 Other chest pain (principal); K21.9 Gastro-esophageal reflux disease without esophagitis; I10 Essential (primary) hypertension; F17.210 Nicotine dependence, cigarettes, uncomplicated; Z88.8 Allergy status to other drugs, medicaments and biological substances; Z82.49 Family history of ischemic heart disease and other diseases of the circulatory system; Z87.11 Personal history of peptic ulcer disease
CPT/HCPCS: 36415; 71045; 80048; 80076; 83690; 83880; 84443; 84484; 85025; 85610; 85730; 93005; 93306; 93458; 99152; 99153; C1769; C1892; J1644; J2250; J3010; J3490; Q9967

== ENCOUNTER 2019-05-26 17:03 | Emergency (ER) | payer BC ==
[~2019-05-26] VITALS: Ht 188 cm; Wt 99.8 kg
[~2019-05-26 17:03] MED LIST changes: +LISI1TAB23 PO; -LISI1TAB3 PO; +LOSA50TA15 PO
[2019-05-26] MEDS ORDERED: ASPIRIN CHEWABLE 81 MG TABLET. PO ONE (17:30)
[2019-05-26] MEDS ORDERED: NITROGLYCERIN SUBLINGUAL 0.4 MG BOTTLE OF 25. SL PRN (17:30)
--- NOTE | 2019-05-26 18:09 | PHYS DOC ---
Past Medical History Past Medical History: Hypertension (CARLOS SIMEON MD) Past Surgical History: Tonsillectomy (CARLOS SIMEON MD) Smoking: Cigarettes Alcohol Use: Occasionally Drug Use: Cocaine, Marijuana (CARLOS SIMEON MD) Adult General Chief Complaint Chief Complaint: SHORTNESS OF BREATH HPI HPI Patient is a 43 year old male patient with history of hypertension, STEMI and smoking who presents with present of chest pain. Patient complaining of episodes of left sided chest pain during episodes of cough for the last 1 week that usually lasts for a few seconds as a sharp pain and rated his pain 10 over 10. Patient complaining of nausea and shortness of breath at the same time. Patient states he has had productive cough with clear sputum for one week associated with nasal congestion and sore throat. Patient denies fever but had temperature of 100.5 at arrival to ER and complaining of feeling hot. (CARLOS SIMEON MD) Review of Systems Review of Systems Constitutional: Denies fever or chills [] Eyes: Denies change in visual acuity, redness, or eye pain [] HENT: Reports nasal congestion and sore throat Respiratory: Reports cough and shortness of breath Cardiovascular: No additional information not addressed in HPI [] GI: Denies abdominal pain, nausea, vomiting, bloody stools or diarrhea [] : Denies dysuria or hematuria [] Musculoskeletal: Denies back pain or joint pain [] Integument: Denies rash or skin lesions [] Neurologic: Denies headache, focal weakness or sensory changes [] Endocrine: Denies polyuria or polydipsia [] All other systems were reviewed and found to be within normal limits, except as documented in this note. (CARLOS SIMEON MD) Current Medications Current Medications Current Medications Medications (Trade) Dose Ordered Sig/Tabitha Start Time Stop Time Status Last Admin Dose Admin Acetaminophen (Tylenol) 1,000 mg 1X ONCE 05/26/19 18:00 05/26/19 18:01 DC 05/26/19 18:48 1,000 MG Aspirin (Children'S Aspirin) 324 mg 1X ONCE 05/26/19 17:30 05/26/19 17:54 DC Azithromycin (Zithromax) 500 mg 1X ONCE 05/26/19 19:45 05/26/19 19:46 DC 05/26/19 19:58 500 MG Ketorolac Tromethamine (Toradol 30mg Vial) 30 mg 1X ONCE 05/26/19 19:30 05/26/19 19:31 DC 05/26/19 19:58 30 MG Nitroglycerin (Nitrostat) 0.4 mg PRN Q5MIN PRN 05/26/19 17:30 05/26/19 17:54 DC Sodium Chloride 1,000 ml @ 1,000 mls/hr 1X ONCE 05/26/19 18:00 05/26/19 18:59 DC 05/26/19 18:49 1,000 MLS/HR (KARIN BAILEY MD) Allergies Allergies Allergies Coded Allergies Type Severity Reaction Last Updated Verified lisinopril Allergy Intermediate 01/20/18 Yes (KARIN BAILEY MD) Physical Exam Physical Exam Constitutional: Well developed, well nourished, mild distress, non-toxic appearance, febrile. [] HENT: Normocephalic, atraumatic, bilateral external ears normal, oropharynx moist, no oral exudates, nasal congestion. [] Eyes: PERRLA, EOMI, conjunctiva normal, no discharge. [] Neck: Normal range of motion, no tenderness, supple, no stridor. [] Cardiovascular: Tachycardia, no murmur [] Lungs & Thorax: Tachypnea, bilateral breath sounds clear to auscultation [] Abdomen: Bowel sounds normal, soft, no tenderness, no masses, no pulsatile masses. [] Skin: Warm, dry, no erythema, no rash. [] Back: No tenderness, no CVA tenderness. [] Extremities: No tenderness, no cyanosis, no clubbing, ROM intact, no edema. [] Neurologic: Alert and oriented X 3, normal motor function, normal sensory function, no focal deficits noted. [] Psychologic: Affect anxious, judgement normal, mood normal. [] (CARLOS SIMEON MD) Current Patient Data Vital Signs Vital Signs Date Time Temp Pulse Resp B/P (MAP) Pulse Ox O2 Delivery O2 Flow Rate FiO2 05/26/19 18:25 101 14 154/109 (124) 96 Room Air 05/26/19 17:32 100.4 100.4 (KARIN BAILEY MD) Lab Values Laboratory Tests Test 05/26/19 17:28 05/26/19 18:05 05/26/19 20:10 Influenza Type A Antigen Negative (NEGATIVE) Influenza Type B Antigen Negative (NEGATIVE) White Blood Count 8.1 x10^3/uL (4.0-11.0) Red Blood Count 4.75 x10^6/uL (4.30-5.70) Hemoglobin 14.5 g/dL (13.0-17.5) Hematocrit 42.5 % (39.0-53.0) Mean Corpuscular Volume 89 fL (79-100) Mean Corpuscular Hemoglobin 31 pg (25-35) Mean Corpuscular Hemoglobin Concent 34 g/dL (31-37) Red Cell Distribution Width 13.9 % (11.5-14.5) Platelet Count 309 x10^3/uL (140-400) Neutrophils (%) (Auto) 67 % (31-73) Lymphocytes (%) (Auto) 21 % (24-48) L Monocytes (%) (Auto) 8 % (0-9) Eosinophils (%) (Auto) 4 % (0-3) H Basophils (%) (Auto) 1 % (0-3) Neutrophils # (Auto) 5.4 x10^3/uL (1.8-7.7) Lymphocytes # (Auto) 1.7 x10^3/uL (1.0-4.8) Monocytes # (Auto) 0.7 x10^3/uL (0.0-1.1) Eosinophils # (Auto) 0.3 x10^3/uL (0.0-0.7) Basophils # (Auto) 0.0 x10^3/uL (0.0-0.2) Prothrombin Time 12.4 SEC (11.7-14.0) Prothrombin Time INR 1.0 (0.8-1.1) Sodium Level 137 mmol/L (136-145) Potassium Level 3.8 mmol/L (3.5-5.1) Chloride Level 103 mmol/L (98-107) Carbon Dioxide Level 26 mmol/L (21-32) Anion Gap 8 (6-14) Blood Urea Nitrogen 28 mg/dL (8-26) H Creatinine 1.4 mg/dL (0.7-1.3) H Estimated GFR (Cockcroft-Gault) 67.6 BUN/Creatinine Ratio 20 (6-20) Glucose Level 134 mg/dL (70-99) H Lactic Acid Level 1.5 mmol/L (0.4-2.0) Calcium Level 9.1 mg/dL (8.5-10.1) Magnesium Level 1.6 mg/dL (1.8-2.4) L Total Bilirubin 0.3 mg/dL (0.2-1.0) Aspartate Amino Transferase (AST) 26 U/L (15-37) Alanine Aminotransferase (ALT) 48 U/L (16-63) Alkaline Phosphatase 138 U/L (46-116) H Creatine Kinase 299 U/L (39-308) Troponin I Quantitative < 0.017 ng/mL (0.000-0.055) < 0.017 ng/mL (0.000-0.055) JU-Hre-G-Type Natriuretic Peptide 10 pg/mL (0-124) Total Protein 7.5 g/dL (6.4-8.2) Albumin 4.0 g/dL (3.4-5.0) Albumin/Globulin Ratio 1.1 (1.0-1.7) Lipase 240 U/L (73-393) Laboratory Tests 05/26/19 18:05 Laboratory Tests 05/26/19 18:05 (KARIN BAILEY MD) EKG EKG EKG interpreted by me. EKG at 1713 showed sinus tachycardia at rate of 110, left atrial abnormality, LVH with repolarization abnormality, inverted T-wave in inferior and anterior leads with new ST depression in lateral leads, no acute ST elevation. (CARLOS SIMEON MD) Radiology/Procedures Radiology/Procedures [] (CARLOS SIMEON MD) Course & Med Decision Making Course & Med Decision Making Pertinent Labs and Imaging studies are pending. Evaluation of patient in ER showed 43-year-old male patient with heart failure with complaining of episode of chest pain with cough. Patient had fever, tachycardia, tachypnea at arrival to ER. IV fluid and Tylenol was ordered. Labs and chest x-ray is pending. Sign out given to at 1800 for further evaluation and final disposition. Discussed current findings and plan with patient and family, who acknowledge understanding and agreement. (CARLOS SIMEON MD) Course & Med Decision Making Patient's laboratory values reviewed, influenza negative, chest x-ray reveals no evidence of acute consolidation, lactic acid 1.5. Echocardiogram has improved, fever has improved. Troponin negative. Repeat troponin pending. If this is unremarkable we'll plan for antibiotic therapy, when necessary medications for pain control as an outpatient. It appears this is all chest wall pain associated with coughing, inflammatory process in the chest. Troponin x 2 negative. Recommend dc home and follow up as outpatient with PCP. Return precautions provided Discussed findings with patient (KARIN BAILEY MD) Dragon Disclaimer Dragon Disclaimer This electronic medical record was generated, in whole or in part, using a voice recognition dictation system. (CARLOS SIMEON MD) Departure Departure Impression: Primary Impression: Chest pain Additional Impressions: Chest wall pain Cough Fever Disposition: HOME, SELF-CARE Condition: IMPROVED Referrals: UNKNOWN PCP NAME (PCP) Patient Instructions: Chest Pain Observation, Chest Wall Pain, [id number] Additional Instructions: Recommend follow up with PCP 3 - 5 days Return to the ER with worsening symptoms, intractable pain, fever, altered mental status Tylenol/Motrin as needed for pain Take antibiotics as directed Cardiac evalatuion - negative cardiac enzymes x 2 sets Chest xray without evidence of acute consolidation/pneumonia Scripts Tramadol Hcl (ULTRAM) 50 Mg Tablet 50 MG PO Q6HRS PRN for PAIN, #10 TAB 0 Refills Prov: KARIN BAILEY MD 05/26/19 Azithromycin (AZITHROMYCIN TABLET) 500 Mg Tablet 1 TAB PO DAILY for 5 Days, #5 TAB 0 Refills Prov: KARIN BAILEY MD 05/26/19 The HEART Score for CP Pts HEART Score for Chest Pain: HEART Score for Chest Pain Response (Comments) Value History Slighlty/Non-Suspicious [address] Depression 2 Age < 45 0 Risk Factors >3 Risk Factors or Hx CAD 2 Total 4 Risk Factors: Risk Factors: DM, Current or recent (<one month) smoker, HTN, HLP, family history of CAD, obesity. Risk Scores: Score 0 - 3: 2.5% MACE over next 6 weeks - Discharge Home Score 4 - 6: 20.3% MACE over next 6 weeks - Admit for Clinical Observation Score 7 - 10: 72.7% MACE over next 6 weeks - Early Invasive Strategies (CARLOS SIMEON MD) Problem Qualifiers Primary Impression: Chest pain Chest pain type: unspecified Qualified Codes: R07.9 - Chest pain, unspe cified Additional Impressions: Fever Fever type: unspecified Qualified Codes: R50.9 - Fever, unspecified CARLOS SIMEON MD May 26, 2019 18:09 KARIN BAILEY MD May 26, 2019 19:22
[2019-05-26 18:23] LABS: INFLUENZA A PATIENT NEGATIVE (NEGATIVE); INFLUENZA B PATIENT NEGATIVE (NEGATIVE)
--- NOTE | 2019-05-26 18:32 | RAD ---
AP chest. HISTORY: Chest pain AP view was taken of the chest. There is elevation of the right diaphragm. There are no confluent infiltrates. There is no effusion. IMPRESSION: 1. No acute chest disease. Electronically signed by: Joss Ni MD (05/26/2019 6:30 PM) [facility]
[2019-05-26 18:36] LABS: BASO % 1 % (0-3); EOS # 0.3 x10^3/uL (0.0-0.7); EOS % 4 % (0-3); HEMATOCRIT 42.5 % (39.0-53.0); HEMOGLOBIN 14.5 g/dL (13.0-17.5); LYMPH # 1.7 x10^3/uL (1.0-4.8); LYMPH % 21 % (24-48); MEAN CORPUSCULAR HEMOGLOBIN 31 pg (25-35); MEAN CORPUSCULAR HGB CONC 34 g/dL (31-37); MEAN CORPUSCULAR VOLUME 89 fL (79-100); MONO # 0.7 x10^3/uL (0.0-1.1); MONO % 8 % (0-9); NEUT # 5.4 x10^3/uL (1.8-7.7); NEUT % 67 % (31-73); PLATELET COUNT 309 x10^3/uL (140-400); RED BLOOD COUNT 4.75 x10^6/uL (4.30-5.70); RED CELL DISTRIBUTION WIDTH 13.9 % (11.5-14.5); WHITE BLOOD COUNT 8.1 x10^3/uL (4.0-11.0)
[2019-05-26 18:37] LABS: CALCIUM 9.1 mg/dL (8.5-10.1); CREATININE 1.4 mg/dL (0.7-1.3); GFR 67.6; POTASSIUM 3.8 mmol/L (3.5-5.1)
[2019-05-26 18:44] LABS: ALBUMIN/GLOBULIN RATIO 1.1 (1.0-1.7); MAGNESIUM 1.6 mg/dL (1.8-2.4); TOTAL BILIRUBIN 0.3 mg/dL (0.2-1.0); TOTAL PROTEIN 7.5 g/dL (6.4-8.2)
[2019-05-26 18:45] LABS: PROTHROMBIN TIME PATIENT 12.4 SEC (11.7-14.0)
[2019-05-26] MEDS: ACETAMINOPHEN 500 MG TABLET PO ONE (18:48)
[2019-05-26] MEDS: IV NORMAL SALINE 1000ML BAG 1,000 ML IV ONE (18:49)
[2019-05-26] MEDS ORDERED: AZIT500T4 PO (19:30)
[2019-05-26] MEDS: KETOROLAC 30 MG/ML VIAL. IVP ONE (19:58)
[2019-05-26] MEDS: AZITHROMYCIN 250 MG TABLET. PO ONE (19:58)
[2019-05-26] MEDS ORDERED: TRAM-48 PO (20:54)
[2019-05-26 20:55] VITALS: BP 132/81
--- NOTE | 2019-05-27 15:03 | EKG ---
[facility] [address] [place] [address] Test Date: 2019-05-26 Test Time: 17:13:40 Pat Name: SUSI RIZVI Department: Room: Gender: M Clinic Mgr: : 1975 Requested By: CARLOS SIMEON Order Number: [id number] Reading MD: Measurements Intervals [place] Rate: P: SD: QRS: QRSD: T: QT: QTc: Interpretive Statements
== END 2019-05-26 21:22 | disposition home or self-care (01) ==
LOC: ER 17:03
DX: R07.89 Other chest pain (principal); R05 Cough; R50.9 Fever, unspecified; R11.0 Nausea; R06.02 Shortness of breath; I10 Essential (primary) hypertension; F12.90 Cannabis use, unspecified, uncomplicated; F14.90 Cocaine use, unspecified, uncomplicated; I25.2 Old myocardial infarction; F17.210 Nicotine dependence, cigarettes, uncomplicated; Z90.89 Acquired absence of other organs; Z88.8 Allergy status to other drugs, medicaments and biological substances; Z79.82 Long term (current) use of aspirin; Z79.899 Other long term (current) drug therapy
CPT/HCPCS: 36415; 71045; 80053; 82550; 83605; 83690; 83735; 83880; 84484; 85025; 85610; 87040; 87804; 93005; 96374; 99285; J1885; J7030; Q0144